=== PATIENT | female | born 1985 | race Caucasian/White ===

== ENCOUNTER 2024-10-03 16:59 | Emergency (ER) | payer OTHER, SELFPAY ==
[2024-10-03 17:02] VITALS: BP 112/90; PULSE 78; TEMP 36.6; O2SAT 98; BMI 26.3
--- NOTE | 2024-10-03 17:13 | XR_ITS ---
The [address] [address] Patient Name: SHAKIRA RODRIGUEZ MRN: [id number] date: 1985 Sex: F Assigned Patient Location: ER Current Patient Location: Accession/Order Number: [id number] Exam Date: 10/03/2024 17:50 Report Date: 10/03/2024 20:31 At the request of: SHIRLEY BLISS Procedure: XR elbow RT min 3V HISTORY: injury COMPARISON: There are no previous studies available for comparison. TECHNIQUE: 3 views of the right elbow. FINDINGS: BONE DENSITY: Normal. JOINTS: No acute abnormality. FRACTURE: No acute fracture. DISLOCATION: None. SOFT TISSUES: There is small soft tissue gas in the proximal forearm. XR/XR elbow RT min 3V IMPRESSION: 1. No acute osseous or joint abnormality. 2. Laceration of the proximal forearm. Electronically authenticated by: FARHAT FRANCIS Date: 10/03/2024 20:31
--- NOTE | 2024-10-03 17:14 | ED_ITS ---
HPI - Animal Bite General Chief Complaint: Animal Bite Stated Complaint: DOG BITE Time Seen by Provider: 10/03/24 17:13 Source: patient Mode of arrival: walk-in Limitations: no limitations History of Present Illness HPI narrative: 39 year old female presents to the ED for right arm swelling, erythema, increased warmth. She was evaluated at another facility 09/30/24 for a dog bite to her right forearm. States x-rays of the forearm were unremarkable. She had sutures placed in two of her wounds. She has been taking Augmentin. She is concerned due to the increased warmth and swelling to the elbow area. Denies fev er, chills, weakness, N/T. Related Data Home Medications ?Medication ?Instructions ?Recorded ?Confirmed amoxicillin 875 mg-potassium tab 10/03/24 clavulanate 125 mg tablet hydrocodone 5 mg-acetaminophen 325 tab 10/03/24 mg tablet Allergies Allergy/AdvReac Type Severity Reaction Status Date / Time No Known Drug Allergies Allergy Verified 10/03/24 17:11 Review of Systems ROS Constitutional Denies: fever or chills Ears, nose, mouth, and throat Denies: neck pain Cardiovascular Denies: chest pain Respiratory Denies: shortness of breath Musculoskeletal Reports: extremity pain and extremity swelling; Denies: neck pain Integumentary/Breast Reports: redness, skin pain and skin tenderness; Denies: rash Neurological Denies: headache, numbness in extremities, weakness in extremities or dizziness PFSH PFSH Social History Little interest or pleasure in doing things: not at all Feeling down, depressed, or hopeless: not at all Exam Constitutional Vital Signs, click to edit/add: Last Vital Signs Temp 97.8 F 10/03/24 17:02 Pulse 78 10/03/24 17:02 Resp 18 10/03/24 17:02 BP 112/90 10/03/24 17:02 Pulse Ox 98 10/03/24 17:02 O2 Del Method Room Air 10/03/24 17:02 Common normals: no apparent distress and oriented x3 General appearance: cooperative Eye Common normals: conjunctivae normal and no scleral icterus Neck & C-Spine Common normals: supple Chest Chest: symmetrical chest wall rise Respiratory Common normals: normal respiratory effort Effort & inspection: able to speak in complete sentences Cardio Common normals: regular rate Peripheral pulses: radial pulses present Extremity Other: Swelling to right arm from elbow to hand. There are wounds to right forearm with sutures in place. There is erythema with increased warmth to right forearm and right posterior elbow area. No drainage from wounds. No foul odor. Distal sensation intact. Abrasions to left forearm as well. Neuro Common normals: oriented x3 and moves all extremities Sensorium/orientation: awake and alert Speech: speech normal Course Vital Signs Vital signs: Vital Signs Temperature 97.8 F 10/03/24 17:02 Pulse Rate 78 10/03/24 17:02 Respiratory Rate 18 10/03/24 17:02 Blood Pressure 112/90 10/03/24 17:02 Pulse Oximetry 98 10/03/24 17:02 Oxygen Delivery Method Room Air 10/03/24 17:02 Temperature 97.8 F 10/03/24 17:02 Pulse Rate 78 10/03/24 17:02 Respiratory Rate 18 10/03/24 17:02 Blood Pressure 112/90 10/03/24 17:02 Pulse Oximetry 98 10/03/24 17:02 Oxygen Delivery Method Room Air 10/03/24 17:02 MDM - Animal Bite MDM Narrative Medical decision making narrative: WBC count was 5.1. X-ray was negative for acute findings. She was medicated with Unasyn IV here in the ED. Continue the Augmentin as directed. A sling was leelee lied to the right arm. The application was checked and was appropriate; RUE remained NVI. Follow up with pcp for a recheck, further evaluation and treatment. Return precautions were discussed. Differential Diagnosis Differential diagnosis: Likely dog bite Medical Records Attestation: I reviewed the patient's medical records. Lab Data Attestation: I reviewed the patient's lab results. Labs: Lab Results 10/03/24 Range/Units 17:30 WBC 5.1 (4.0-11.0) 10^3/uL RBC 4.28 (4.20-5.40) 10^6/uL Hgb 13.4 (12.0-16.0) g/dL Hct 39.8 (36.0-48.0) % MCV 93.0 (81.0-99.0) fL MCH 31.3 (26.7-34.0) pg MCHC 33.7 (29.9-35.2) g/dL RDW 12.0 (11.0-15.0) % Plt Count 262 (150-450) 10^3/uL MPV 11.3 (9.5-13.5) fL Neut % (Auto) 57.9 (43.0-75.0) % Lymph % (Auto) 34.4 (20.5-60.0) % [place] % (Auto) 6.1 (1.7-12.0) % Eos % (Auto) 0.8 L (0.9-7.0) % Baso % (Auto) 0.6 (0.2-2.0) % Neut # (Auto) 3.0 (1.4-6.5) 10^3/uL Lymph # (Auto) 1.8 (1.2-3.8) 10^3/uL [place] # (Auto) 0.3 (0.3-0.8) 10^3/uL Eos # (Auto) 0.0 (0.0-0.7) 10^3/uL Baso # (Auto) 0.0 (0.0-0.1) 10^3/uL Abs Immat Gran (auto) 0.01 (0.00-0.03) 10^3/uL Imm/Tot Granulo (auto) 0.2 (0.0-0.5) % Sodium 137 (136-145) mmol/L Potassium 3.7 (3.5-5.1) mmol/L Chloride 105 (98-107) mmol/L Carbon Dioxide 24.3 (21.0-32.0) mmol/L Anion Gap 11.4 BUN 11.0 (7.0-18.0) mg/dL Creatinine 0.76 (0.55-1.02) mg/dL Est GFR ( Amer) >60 (>=60 mL/min/1.73m^2) Est GFR (Non-Af Amer) >60 (>=60 mL/min/1.73m^2) BUN/Creatinine Ratio 14.5 Glucose 117 H (74-106) mg/dL Calcium 11.0 H (8.5-10.1) mg/dL Imaging Data XR: Attestation: I have reviewed the pertinent imaging results. Radiologist's impression: ITS Impressions Elbow X-Ray 10/03/24 17:13 IMPRESSION: 1. No acute osseous or joint abnormality. 2. Laceration of the proximal forearm. Electronically authenticated by: FARHAT FRANCIS Date: 10/03/2024 20:31 Discharge Plan Discharge Chief Complaint: Animal Bite Clinical Impression: Dog bite, Cellulitis Patient Disposition: Home, Self-Care Time of Disposition Decision: 18:15 Condition: Good Mode of Transportation: Private Vehicle Prescriptions / Home Meds: No Action hydrocodone-acetaminophen 5-325 mg tablet amoxicillin-pot clavulanate 875-125 mg tablet Print Language: Panamanian Instructions: Animal Bite (ED), Cellulitis (ED) Additional Instructions: Return to the ER for new or worsening symptoms. Continue the Augmentin as directed to completion. Referrals: Sandee Carr NP [Primary Care Provider] - 1 week Discharge Date/Time: 10/03/24 19:41
[2024-10-03 17:36] LABS: Basophils Percent Auto 0.6 % (0.2-2.0); Eosinophils Percent Auto 0.8 % (0.9-7.0); Hematocrit 39.8 % (36.0-48.0); Hemoglobin 13.4 g/dL (12.0-16.0); Immature Granulocytes Abs Auto 0.01 10^3/uL (0.00-0.03); Immature Granulocytes Pct Auto 0.2 % (0.0-0.5); Lymphocytes Absolute Auto 1.8 10^3/uL (1.2-3.8); Lymphocytes Percent Auto 34.4 % (20.5-60.0); Mean Corpuscular HGB Conc 33.7 g/dL (29.9-35.2); Mean Corpuscular Hemoglobin 31.3 pg (26.7-34.0); Mean Platelet Volume 11.3 fL (9.5-13.5); Monocytes Absolute Auto 0.3 10^3/uL (0.3-0.8); Monocytes Percent Auto 6.1 % (1.7-12.0); Neutrophils Percent Auto 57.9 % (43.0-75.0); Platelet Count 262 10^3/uL (150-450); Red Blood Count 4.28 10^6/uL (4.20-5.40); White Blood Count 5.1 10^3/uL (4.0-11.0)
[2024-10-03 17:44] LABS: Anion Gap 11.4; BUN Creatinine Ratio 14.5; Carbon Dioxide 24.3 mmol/L (21.0-32.0); Chloride 105 mmol/L (98-107); Estimated GFR (African America >60 (>=60 mL/min/1.73m^2); Estimated GFR (Non-African Ame >60 (>=60 mL/min/1.73m^2); Glucose 117 mg/dL (74-106); Potassium 3.7 mmol/L (3.5-5.1); Sodium 137 mmol/L (136-145)
[2024-10-03] MEDS: AMPICILLIN SODIUM/SULBACTAM NA 3 GM in 0.9 % SODIUM CHLORIDE 100 ML IV (18:46)
== END 2024-10-03 19:41 | disposition home or self-care (01) ==
PROVIDERS: Nurse Practitioner Family; Emergency Provider Emergency Medicine; PCP Nurse Practitioner Family
DX: L03.113 Cellulitis of right upper limb (principal); S51.811A Laceration without foreign body of right forearm, initial encounter; W54.0XXA Bitten by dog, initial encounter
CPT/HCPCS: 36415; 73080; 80048; 85025; 96365; 99285; J0295

== ENCOUNTER 2024-10-04 22:17 | Observation (INO) | payer OTHER, SELFPAY ==
[2024-10-04 22:32] VITALS: BP 138/80; PULSE 76; TEMP 37.1; O2SAT 98; BMI 26.3
[2024-10-05] VITALS (13 sets, daily range): BP systolic 119–186; BP diastolic 77–90; PULSE 55–93; TEMP 36.3–36.9; O2SAT 95–100; BMI 26.8
--- NOTE | 2024-10-05 00:04 | PC.NURSE ---
patient complains of swelling to her right elbow, patient sustain dog bite on 09/30/2024. puncture wound have sutures but no visible drainage or active bleeding at this time
--- NOTE | 2024-10-05 00:17 | ED_ITS ---
HPI HPI - General Adult General Chief complaint: Extremity Injury, Upper Stated complaint: UE PAIN Time Seen by Provider: 10/05/24 00:11 Source: patient Mode of arrival: walk-in Limitations: no limitations History of Present Illness HPI narrative: dog bite left hip, left forearm and right forearm 09/30/24. Seen at [facility] and lac right forearm repaired and discharged home on Augmentin. Seen here yesterday because of increased swelling of the right arm. No complaints involving her left hip or left FA and feel they are improving. Given dose of IV Unasyn yesterday and felt this AM it did help as the swelling had decreased some. During the day the arm is again more swollen and she feels the Augmentin is not working . Has pain. No fever. Related Data Home Medications ?Medication ?Instructions ?Recorded ?Confirmed amoxicillin 875 mg-potassium tab 10/03/24 clavulanate 125 mg tablet hydrocodone 5 mg-acetaminophen 325 1 tab 10/03/24 mg tablet Allergies Allergy/AdvReac Type Severity Reaction Status Date / Time No Known Drug Allergies Allergy Verified 10/04/24 22:35 Opioid HPI Opioid Management Most Recent Opioid Data: No Data to Display Review of Systems ROS Status of ROS 10 or more systems reviewed and unremark able except as noted in history and below PFSH PFSH Social History Little interest or pleasure in doing things: not at all Feeling down, depressed, or hopeless: not at all Exam Constitutional Vital Signs, click to edit/add: Last Vital Signs Temp 98.7 F 10/04/24 22:32 Pulse 93 H 10/05/24 00:11 Resp 18 10/05/24 00:11 BP 186/90 H 10/05/24 00:11 Pulse Ox 99 10/05/24 00:11 O2 Del Method Room Air 10/04/24 22:32 Common normals: no apparent distress, average body habitus, oriented x3, no limitations, healthy appearing, alert and well nourished [facility] Common normals: normocephalic Eye Common normals: PERRL, EOMs intact bilaterally and conjunctivae normal Respiratory Common normals: normal respiratory effort, no retractions, no use of accessory muscles and clear to auscultation bilaterally Cardio Common normals: regular rate, regular rhythm, S1 normal heart sound and S2 normal heart sound Extremity Other: lac right FA with stitches in places. No drainage. Does have significant swelling of the left hand/FA and elbow. Elbow is flexed at 90 degrees as she is not able to extend it Neuro Common normals: oriented x3, CN's II-XII intact bilaterally, moves all extremities, no focal motor deficits and no sensory deficits noted Psych Appearance: grossly normal Course Vital Signs Vital signs: Vital Signs Temperature 98.7 F 10/04/24 22:32 Pulse Rate 76 10/04/24 22:32 Respiratory Rate 16 10/04/24 22:32 Blood Pressure 138/80 10/04/24 22:32 Pulse Oximetry 98 10/04/24 22:32 Oxygen Delivery Method Room Air 10/04/24 22:32 Temperature 98.7 F 10/04/24 22:32 Pulse Rate 93 H 10/05/24 00:11 Respiratory Rate 18 10/05/24 00:11 Blood Pressure 186/90 H 10/05/24 00:11 Pulse Oximetry 99 10/05/24 00:11 Oxygen Delivery Method Room Air 10/04/24 22:32 Medical Decision Making [facility] Narrative Medical decision making narrative: patient presents after failing out patient Antibiotics for dog bite 5 days ago. Despite taking Augmentin her arm is not improving. Did receive a dose of Unasyn yesterday while in the ED here and she felt it did help but now despite continui ng Augmentin the arm is swelling again Labs ordered including CRP. IV unasyn ordered. Discussed with hospitalist and will plan obs admission for cellulitis right arm Discharge Plan Discharge Chief Complaint: Extremity Injury, Upper Clinical Impression: Cellulitis, Dog bite Patient Disposition: Admitted as Observation Prescriptions / Home Meds: No Action hydrocodone-acetaminophen 5-325 mg tablet 1 tab amoxicillin-pot clavulanate 875-125 mg tablet Print Language: [place] Referrals: Sandee Carr NP [Primary Care Provider] - 1 week
[2024-10-05 00:41] LABS: Basophils Percent Auto 0.7 % (0.2-2.0); Eosinophils Absolute Auto 0.1 10^3/uL (0.0-0.7); Eosinophils Percent Auto 1.6 % (0.9-7.0); Hematocrit 39.3 % (36.0-48.0); Hemoglobin 12.9 g/dL (12.0-16.0); Immature Granulocytes Abs Auto 0.01 10^3/uL (0.00-0.03); Immature Granulocytes Pct Auto 0.2 % (0.0-0.5); Lymphocytes Absolute Auto 1.8 10^3/uL (1.2-3.8); Lymphocytes Percent Auto 40.7 % (20.5-60.0); Mean Corpuscular HGB Conc 32.8 g/dL (29.9-35.2); Mean Corpuscular Volume 94.5 fL (81.0-99.0); Mean Platelet Volume 11.4 fL (9.5-13.5); Monocytes Absolute Auto 0.3 10^3/uL (0.3-0.8); Monocytes Percent Auto 6.1 % (1.7-12.0); Neutrophils Absolute Auto 2.3 10^3/uL (1.4-6.5); Neutrophils Percent Auto 50.7 % (43.0-75.0); Platelet Count 269 10^3/uL (150-450); Red Blood Count 4.16 10^6/uL (4.20-5.40); Red Cell Distribution Width 11.9 % (11.0-15.0); White Blood Count 4.5 10^3/uL (4.0-11.0)
[2024-10-05] MEDS: AMPICILLIN SODIUM/SULBACTAM NA 3 GM in 0.9 % SODIUM CHLORIDE 100 ML IV ×3 (00:46→14:16)
[2024-10-05 00:56] LABS: Anion Gap 13.1; Calcium 11.1 mg/dL (8.5-10.1); Carbon Dioxide 27.7 mmol/L (21.0-32.0); Chloride 105 mmol/L (98-107); Estimated GFR (African America >60 (>=60 mL/min/1.73m^2); Estimated GFR (Non-African Ame >60 (>=60 mL/min/1.73m^2); Glucose 92 mg/dL (74-106); Potassium 3.8 mmol/L (3.5-5.1); Sodium 142 mmol/L (136-145)
[2024-10-05 01:02] LABS: Lactate/Lactic Acid 1.7 mmol/L (0.4-2.0)
[2024-10-05 01:08] LABS: C Reactive Protein <0.50 mg/dL (<=0.50)
--- NOTE | 2024-10-05 01:32 | PC.NURSE ---
patient voices no complaints or concerns and patient complete with her IV ATB and iv site no signs of infiltration or pain
[2024-10-05 06:29] LABS: Basophils Percent Auto 0.8 % (0.2-2.0); Eosinophils Absolute Auto 0.1 10^3/uL (0.0-0.7); Hematocrit 38.4 % (36.0-48.0); Hemoglobin 12.8 g/dL (12.0-16.0); Lymphocytes Absolute Auto 1.8 10^3/uL (1.2-3.8); Lymphocytes Percent Auto 44.1 % (20.5-60.0); Mean Corpuscular HGB Conc 33.3 g/dL (29.9-35.2); Mean Corpuscular Hemoglobin 31.4 pg (26.7-34.0); Mean Corpuscular Volume 94.1 fL (81.0-99.0); Mean Platelet Volume 11.8 fL (9.5-13.5); Monocytes Absolute Auto 0.3 10^3/uL (0.3-0.8); Monocytes Percent Auto 6.8 % (1.7-12.0); Neutrophils Absolute Auto 1.9 10^3/uL (1.4-6.5); Neutrophils Percent Auto 46.3 % (43.0-75.0); Platelet Count 252 10^3/uL (150-450); Red Blood Count 4.08 10^6/uL (4.20-5.40)
[2024-10-05 06:43] LABS: Alanine Aminotransferase 26 U/L (14-59); Albumin Globulin Ratio 1.1; Albumin Level 3.3 g/dL (3.4-5.0); Alkaline Phosphatase 90 U/L (46-116); Anion Gap 13.2; Aspartate Amino Transferase 18 U/L (15-37); BUN Creatinine Ratio 14.1; Bilirubin Total 0.3 mg/dL (0.2-1.0); Calcium 10.1 mg/dL (8.5-10.1); Carbon Dioxide 25.1 mmol/L (21.0-32.0); Chloride 107 mmol/L (98-107); Estimated GFR (African America >60 (>=60 mL/min/1.73m^2); Estimated GFR (Non-African Ame >60 (>=60 mL/min/1.73m^2); Globulin 2.9 g/dL; Glucose 93 mg/dL (74-106); Magnesium 2.1 mg/dL (1.8-2.4); Potassium 4.3 mmol/L (3.5-5.1); Sodium 141 mmol/L (136-145); Total Protein 6.2 g/dL (6.4-8.2)
[2024-10-05] MEDS: ENOXAPARIN SODIUM 40 MG/0.4 ML SYRINGE SUBQ (08:14)
[2024-10-05] MEDS: 0.9 % SODIUM CHLORIDE 250 ML 10 ML IV (08:14)
[2024-10-05] MEDS: OXYCODONE HCL/ACETAMINOPHEN 5MG/325MG 2 TAB PO (08:53)
--- NOTE | 2024-10-05 09:05 | PM.HP ---
HPI H&P: HPI History of Present Illness Chief complaint: UE PAIN Narrative: patient is a 39 y.o white female with past medical history of getting bit by her boyfriends dog, she sufferred several bites over the right and left arm and left hip. This was a bull/pit mix. The dog is now an outside dog and they have found another home for it. She presented at another ER and had to have sutures placed for the right forearm laceration/bite. She was placed on Augmentin. She returned to the ER last night with warmth, swelling and pain to that right forearm. She denies fevers or chills but pain when moving it. She has no other past medical history, other than recent hyperparathyroidism. ER findings: WBC's 5.1, afebrile but given the nature and extent of the bite and clinical signs of cellulitis, patient was placed on Unasyn. this morning on exam, she has increased pain and swelling extending into right hand, no discharge or drainage. Opioid HPI Opioid Management Most Recent Pain and Opioid Data: Last Pain Scale 4 10/05/24 15:00 10/05/24 Last Pain Assessment 10/05/24 15:00 Last MAR Pain Assessment 10/05/24 08:53 Last ORT Total Score 1 10/05/24 01:38 10/05/24 Last ORT Risk Category Low Risk 10/05/24 01:38 10/05/24 Review of Systems ROS Narrative ROS: a complete review of systems were reviewed with patient and are positive as below or listed in History of Chief Complaint. General: no fever, chills, night sweats Head: no headache, trauma, visual changes, nausea or vomiting Skin: multiple dog bites Eyes: no blurriness of vision Ears: no reported hearing loss, vertigo, earache, or tinnitus Throat: no sore throat, hoarseness, swelling of neck, or tongue pain Heart: no chest pain Lungs: no shortness of breath or cough GI: no diarrhea or vomiting/nausea Urinary: no urinary urgency, frequency or pain Neuro: no numbness or tingling HEM: no bleeding issues or bruising ENDO: no thyroid problems Psych: no anxiety or depression PFSH PFS Medical History (Updated 10/05/24 @ 15:29 by Kenisha Kaplan, DO) Hyperparathyroidism ?E21.3 - Hyperparathyroidism, unspecified (ICD-10) Social History Within the past year, how often did you have a drink containing alcohol: monthly or less Within the past year, how often did you have six or more drinks on one occasion: never Smoking status: Never smoker Non-prescribed substance use: denies use Known occupational exposures/hazards: No Highest level of school completed/degree received: high school graduate Do you want help with school or training: No Are you now , , , , never or living with a partner: living with partner In a typical week, how many times do you talk on the telephone with family, friends, or neighbors: 3 or more times per week How often do you get together with friends or relatives: twice per week How often do you attend sikh or congregation services: never Do you belong to any clubs or organizations such as sikh groups unions, [employer] or athletic groups, or school groups: no Total score: 2 Score interpretation: A score of greater than or equal to 2 indicates the lowest level of social isolation. Little interest or pleasure in doing things: not at all Feeling down, depressed, or hopeless: not at all Feel stressed/tense/nervous/anxious/difficulty sleeping: not at all Due to disability, difficulty making decisions: No Meds Home Medications and Allergies Home Medications ?Medication ?Instructions ?Recorded ?Confirmed ?Type amoxicillin 875 mg-potassium tab 10/03/24 History clavulanate 125 mg tablet hydrocodone 5 mg-acetaminophen 325 1 tab 10/03/24 History mg tablet Allergies Allergy/AdvReac Type Severity Reaction Status Date / Time No Known Drug Allergies Allergy Verified 10/04/24 22:35 Exam Narrative Exam Narrative: General: Patient is alert, and oriented to person, place and time with normal affect, proper hygiene Skin: right forearm laceration is healing well, i cannot appreciate any discharge or feel any area of loculations, her arm is swollen from below the elbow to the top of hand, erythematous and; healing bite ramirez on left arm and large bruise to left hip. Head: atraumatic, acephalic Eyes: PERRLA, no nystagmus present, conjunctiva clear, no scleral icterus Ears: normal gross auditory acuity Heart: Normal rate and rhythm, no murmurs/rubs/gallops Lungs: no audible wheezes, crackles and normal breath sounds all lung che Musculoskeletal: muscle atrophy noted, ROM is limited due to being in hospital bed, no swelling bilateral lower extremities Vascular: Normal carotid, radial, femoral, posterior tibial, and dorsalis pedis pulses Lymph: no supraclavicular, axillary, or anterior/posterior cervical adenopathy Neuro: CN II-X grossly intact, normal sensation upper and lower extremities Constitutional Vital Signs, click to edit/add: Last Vital Signs Temp 97.4 F L 10/05/24 07:48 Pulse 79 10/05/24 07:52 Resp 20 10/05/24 07:52 BP 123/86 10/05/24 07:48 Pulse Ox 96 10/05/24 07:48 O2 Del Method Room Air 10/05/24 07:48 Results Labs Labs: Short CBC 10/05/24 10/05/24 Range/Units 00:29 05:56 WBC 4.5 4.0 (4.0-11.0) 10^3/uL Hgb 12.9 12.8 (12.0-16.0) g/dL Hct 39.3 38.4 (36.0-48.0) % Plt Count 269 252 (150-450) 10^3/uL BMP 10/05/24 10/05/24 00:29 05:56 Sodium 142 141 Potassium 3.8 4.3 Chloride 105 107 Carbon Dioxide 27.7 25.1 BUN 13.0 9.0 Creatinine 0.93 0.64 Glucose 92 93 Calcium 11.1 H 10.1 Liver Function 10/05/24 Range/Units 05:56 Total Bilirubin 0.3 (0.2-1.0) mg/dL AST 18 (15-37) U/L ALT 26 (14-59) U/L Alkaline Phosphatase 90 (46-116) U/L Albumin 3.3 L (3.4-5.0) g/dL Assessment and Plan Assessment and Plan (1) Cellulitis: Qualifiers: Site of cellulitis: extremity Site of cellulitis of extremity: upper extremity Laterality: right Qualified Code(s): L03.113 - Cellulitis of right upper limb (2) Dog bite: Qualifiers: Encounter type: initial encounter Qualified Code(s): W54.0XXA - Bitten by dog, initial encounter (3) Hyperparathyroidism: Plan was on unasyn, stop this and place on zosyn and Vancomycin. Monitor cbc, cmp. Pain control as needed. Lovenox for DVT prophylaxis patient is a full code patient is in observation status.
--- NOTE | 2024-10-05 12:52 | CM.NOTE ---
Rounds made with Dr. Kaplan, no discharge today pt will need IV antibiotics.
[2024-10-05] MEDS: VANCOMYCIN HCL 1,000 MG in 0.9 % SODIUM CHLORIDE 250 ML 125 MG IV (16:23)
[2024-10-05] MEDS: OXYCODONE HCL/ACETAMINOPHEN 5MG/325MG 1 TAB PO (16:23)
[2024-10-05] MEDS: PIPERACILLIN SODIUM/TAZOBACTAM 3.375 GM in 0.9 % SODIUM CHLORIDE 50 ML IV (20:40)
[2024-10-06] MEDS: VANCOMYCIN HCL 1,000 MG in 0.9 % SODIUM CHLORIDE 250 ML 250 MG IV ×2 (00:57→09:44)
[2024-10-06] MEDS: PIPERACILLIN SODIUM/TAZOBACTAM 3.375 GM in 0.9 % SODIUM CHLORIDE 50 ML IV ×2 (03:53→11:51)
[2024-10-06 04:09] VITALS: BP 110/73; PULSE 69; TEMP 36.8; O2SAT 95
[2024-10-06 06:10] LABS: Basophils Absolute Auto 0.1 10^3/uL (0.0-0.1); Eosinophils Absolute Auto 0.1 10^3/uL (0.0-0.7); Eosinophils Percent Auto 1.8 % (0.9-7.0); Hematocrit 42.9 % (36.0-48.0); Hemoglobin 14.3 g/dL (12.0-16.0); Immature Granulocytes Abs Auto 0.01 10^3/uL (0.00-0.03); Immature Granulocytes Pct Auto 0.2 % (0.0-0.5); Lymphocytes Absolute Auto 1.9 10^3/uL (1.2-3.8); Lymphocytes Percent Auto 36.7 % (20.5-60.0); Mean Corpuscular HGB Conc 33.3 g/dL (29.9-35.2); Mean Corpuscular Hemoglobin 31.2 pg (26.7-34.0); Mean Corpuscular Volume 93.7 fL (81.0-99.0); Mean Platelet Volume 11.4 fL (9.5-13.5); Monocytes Absolute Auto 0.3 10^3/uL (0.3-0.8); Monocytes Percent Auto 6.3 % (1.7-12.0); Neutrophils Absolute Auto 2.8 10^3/uL (1.4-6.5); Platelet Count 289 10^3/uL (150-450); Red Blood Count 4.58 10^6/uL (4.20-5.40); Red Cell Distribution Width 11.9 % (11.0-15.0); White Blood Count 5.1 10^3/uL (4.0-11.0)
[2024-10-06 06:31] LABS: Alanine Aminotransferase 24 U/L (14-59); Albumin Globulin Ratio 1.2; Albumin Level 3.7 g/dL (3.4-5.0); Alkaline Phosphatase 97 U/L (46-116); Aspartate Amino Transferase 17 U/L (15-37); Bilirubin Total 0.4 mg/dL (0.2-1.0); Calcium 10.5 mg/dL (8.5-10.1); Carbon Dioxide 25.2 mmol/L (21.0-32.0); Chloride 107 mmol/L (98-107); Estimated GFR (African America >60 (>=60 mL/min/1.73m^2); Estimated GFR (Non-African Ame >60 (>=60 mL/min/1.73m^2); Globulin 3.1 g/dL; Glucose 92 mg/dL (74-106); Potassium 4.2 mmol/L (3.5-5.1); Sodium 141 mmol/L (136-145); Total Protein 6.8 g/dL (6.4-8.2)
[2024-10-06 08:00] VITALS: BP 108/72; PULSE 65; PULSE 75; TEMP 36.3; O2SAT 95
[2024-10-06 08:07] VITALS: O2SAT 97
--- NOTE | 2024-10-06 08:57 | PM.DS1 ---
DS: Providers Provider Date of admission: 10/05/24 01:16 Primary care physician: Sandee Crar NP Attending physician on admission: Kenisha Kaplan Consults: 10/06/24 Consult to Manager Technical Routine Reason for consult:: Mental Health Other Other reason:: Follow up regarding Dog bite and reporting for possible rabies vaccine Discharging clinician: Kenisha Kaplan DS: Diagnosis Discharge Diagnosis (1) Cellulitis: Qualifiers: Laterality: right Site of cellulitis: extremity Site of cellulitis of extremity: upper extremity Qualified Code(s): L03.113 - Cellulitis of right upper limb (2) Dog bite: Qualifiers: Encounter type: initial encounter Qualified Code(s): W54.0XXA - Bitten by dog, initial encounter (3) Hyperparathyroidism: DS: Summary Hospital Course Hospital Course: patient is a 39 y.o white female with past medical history of getting bit by her boyfriends dog, she suffered several bites over the right and left arm and left hip. This was a bull/pit mix. The dog is now an outside dog and they have found another home for it. She presented at another ER and had to have sutures placed for the right forearm laceration/bite. She was placed on Augmentin. She returned to the ER with warmth, swelling and pain to that right forearm. She denies fevers or chills but pain when moving it. She has no other past medical history, other than recent hyperparathyroidism. ER findings: WBC's 5.1, afebrile but given the nature and extent of the bite and clinical signs of cellulitis, patient was placed on Unasyn, this was stopped and I placed her on Vancomycin and Zosyn. Her pain has improved and erythema and swelling have improved. She has not discharge or drainage from sutures. She has had her Tetanus shot. I will place her on Clindamycin and Cefuroxime also with Percocet for pain. She will follow up with her PCP next week for suture removal. She may return to the ER with any worsening signs or symptoms. She has remained afebrile and WBC's normal. Status at Discharge Functional status at discharge: independent ambulation Overall status at discharge: patient is progressing back to baseline Time Spent with Patient Time attestation: Total time spent providing and/or coordinating discharge services: Time spent: greater than 30 minutes Exam Narrative Exam Narrative: General: Patient is alert, and oriented to person, place and time with normal affect, proper hygiene Skin: right forearm laceration is healing well, i cannot appreciate any discharge or feel any area of loculations, swelling has improved, erythema improved Head: atraumatic, acephalic Eyes: PERRLA, no nystagmus present, conjunctiva clear, no scleral icterus Ears: normal gross auditory acuity Heart: Normal rate and rhythm, no murmurs/rubs/gallops Lungs: no audible wheezes, crackles and normal breath sounds all lung che Musculoskeletal: muscle atrophy noted, ROM is limited due to being in hospital bed, no swelling bilateral lower extremities Neuro: CN II-X grossly intact, normal sensation upper and lower extremities Constitutional Vital Signs, click to edit/add: Last Vital Signs Temp 97.4 F L 10/06/24 08:00 Pulse 75 10/06/24 08:00 Resp 13 10/06/24 08:00 BP 108/72 10/06/24 08:00 Pulse Ox 95 10/06/24 08:00 O2 Del Method Room Air 10/06/24 08:00 DS: Data Data Completed and Pending Labs on day of discharge: Labs from last 24 hours 10/06/24 05:36 WBC 5.1 RBC 4.58 Hgb 14.3 Hct 42.9 MCV 93.7 MCH 31.2 MCHC 33.3 RDW 11.9 Plt Count 289 MPV 11.4 Neut % (Auto) 54.0 Lymph % (Auto) 36.7 [place] % (Auto) 6.3 Eos % (Auto) 1.8 Baso % (Auto) 1.0 Neut # (Auto) 2.8 Lymph # (Auto) 1.9 [place] # (Auto) 0.3 Eos # (Auto) 0.1 Baso # (Auto) 0.1 Abs Immat Gran (auto) 0.01 Imm/Tot Granulo (auto) 0.2 Sodium 141 Potassium 4.2 Chloride 107 Carbon Dioxide 25.2 Anion Gap 13.0 BUN 7.0 Creatinine 0.78 Est GFR ( Amer) >60 Est GFR (Non-Af Amer) >60 BUN/Creatinine Ratio 9.0 Glucose 92 Calcium 10.5 H Total Bilirubin 0.4 AST 17 ALT 24 Alkaline Phosphatase 97 Total Protein 6.8 Albumin 3.7 Globulin 3.1 Albumin/Globulin Ratio 1.2 Discharge Plan Discharge Disposition: Home, Self-Care Discharge Medications: New oxycodone-acetaminophen 5-325 mg Tablet 1 tab PO Q8H PRN (Reason: Pain Scale 4-6) 2 Days Qty: 6 0RF clindamycin HCl 300 mg capsule 300 mg PO Q8H 7 Days Qty: 21 0RF cefuroxime axetil 500 mg tablet 500 mg PO BID 7 Days Qty: 14 0RF Discontinued hydrocodone-acetaminophen 5-325 mg tablet 1 tab amoxicillin-pot clavulanate 875-125 mg tablet Activity: increase activity as tolerated Diet: advance to your usual diet Print Language: Setswana Forms: Portal Instructions Follow Up Appointments: Follow up with Sandee Carr NP on Thursday10/11/24 at 8:45 am at [facility] located at [address] [place] [address], phone number [phone]
[2024-10-06 09:44] VITALS: TEMP 36.3
[2024-10-06] MEDS: ENOXAPARIN SODIUM 40 MG/0.4 ML SYRINGE SUBQ (09:45)
--- NOTE | 2024-10-06 11:19 | SWNOTE1 ---
SW had consult to follow up with rabies vaccine. At this time this is not going to be pursued, pt did not have an initial vaccine at [facility].
--- NOTE | 2024-10-06 11:35 | CM.NOTE ---
Rounds made with Dr. Kaplan, pt will discharge to home today. Pt will discharge on P.O antibiotics and f/u with PCP. Dr. Kaplan discussed Rabies vaccine with pt, pt's boyfriend has had the dog for 1 year with low concern. Pt did receive Tetanus vaccine initially at [facility]. No order per Dr. Kaplan for Rabies vaccine at this time.
[2024-10-06] MEDS: OXYCODONE HCL/ACETAMINOPHEN 5MG/325MG 1 TAB PO (11:42)
[2024-10-06 12:00] VITALS: BP 122/77; PULSE 77; TEMP 36.4; O2SAT 97
--- NOTE | 2024-10-07 13:01 | CM.DCFOLLOWU ---
Person spoke with:patient How are you feeling?well How is your pain? minimal and swelling has gone down Did you understand your discharge instructions?yes Do you have any questions about your discharge instructions? no Were you given any prescriptions at discharge?yes Were you able to get your prescriptions filled? yes Do you understand how to take your medications as ordered? we reviewed medications as she was not aware one medication was 3x daily Do you have any questions about your follow up appointment and do you plan to keep your follow up appointment? no questions, follow up reviewed Is there anything else that you would like to discuss?no Questions/Comments/Concerns/Other:none
== END 2024-10-06 12:59 | disposition home or self-care (01) ==
LOC: ER 10-05 00:24 → MS 10-05 01:17
PROVIDERS: Admitting Provider Family Medicine; Emergency Provider Internal Medicine; PCP Nurse Practitioner Family; Visit Provider Family Medicine
DX: L03.113 Cellulitis of right upper limb (principal); S51.851D Open bite of right forearm, subsequent encounter; W54.0XXD Bitten by dog, subsequent encounter; E21.3 Hyperparathyroidism, unspecified
CPT/HCPCS: 36415; 80048; 80053; 83605; 83735; 85025; 86140; 94761; 96365; 96366; 96367; 96368; 96372; 99285; G0378; J0295; J1650; J2543; J3370

== ENCOUNTER 2024-12-21 20:47 | Emergency (ER) | payer OTHER, SELFPAY ==
--- OUTSIDE RECORDS SUMMARY | 2024-12-21 20:57 | XMS_ITS | CCD ---
Author Organization [facility] Inform ion [facility] Care Team Providers Care Pit Shoveler Name Role Phone GELY DURON Admitting Unavailable GELY DURON Attending Unavailable MISC, DOCTOR Primary Care Unavailable GELY DURON Consulting Unavailable SAL QUINTEROS Consulting Unavailable SHREYA ENGLE Consulting Unavailable [facility], Services Primary Care Provider [phone] MD Emma Moody Referring Provider DO Hemal Moore Attending Provider [facility] Primary Care Provider ARLINE Andujar Emergency Provider [facility] Primary Care Provider Ezequiel [facility] Na Wilson Emergency Provider [phone] DO Odin García Attending Provider KHALIDA Carr Attending Provider [facility] Services Primary Care Provider [phone] KHALIDA Carr Primary Care Provider GONZALO SAWYER Attending Unavailable Unallocated Chana RIGGSs Provider Primary Care Provi kristina Sandee Carr APRN Primary Care Provider [phone] Sandee Carr APRN Attending Provider Joo Andujar PA-C Emergency Provider [phone] Aldo Rock DO Emergency Provider Sandee Carr Admitting Unavailable Sandee Carr Attending Unavailable [facility], Services Primary Care Unavaila ble Sandee Carr Admitting Unavailable Sandee Carr Attending Unavailable Sandee Carr Primary Care Unavailable Aldo Rock Admitting Unavailable Aldo Rock Attending Unavailable Sandee Carr Primary Care Unavailable Joo Andujar Admitting Unavailable Joo Andujar Attending Unavailable Sandee Carr Primary Care Unavailable Unallocated , Chanas Provider Primary Care Provi kristina Gonzalo Sawyer Referring Unavailable Gonzalo Sawyer Attending Unavailable Gonzalo Sawyer Admitting Unavailable Medications Current Medications Medication Drug Class(es) Dates Sig (Normalized) Sig (Original) acetaminophen 325 mg / HYDROcodone bitartrate 5 mg oral tablet (2 sources) Opioid Agonist Start: 09-30-2024 take 1 tablet by mouth every six hours as needed for pain Hydrocodone-Acet aminophen 5-325 mg tablet Active 1 TAB PO Q6H as needed for pain 12 3 September 30, 2024 [id number] 200 actuat albuterol 0.09 mg/actuat metered dose inhaler (6 sources) beta2-Adrenergic Agonist Start: 10-07-2022 Albuterol Sulfate (Proair Hfa) 90 mcg/actuation HFA aerosol inhaler Active 1 INH INHALATION EVERY 4-6 HOURS as needed for shortness of breath or wheezing 8.5 October 07, 2022 12:00am ALPRAZolam 0.25 mg oral tablet (11 sources) Benzodiazepine Start: 08-27-2021 take 1 tablet by mouth twice daily as needed for anxiety Alprazolam 0.25 mg tablet Active 0.25 MG PO Twice daily as needed for Anxiety August 26, 2021 11:00pm take 1 tablet by mouth once gage y ALPRAZolam (Xanax) 0.5 MG tablet take 1 tablet by mouth daily if needed Active amoxicillin 875 mg / clavulanate 125 mg oral tablet (9 sources) Penicillin-class Antibacterial Start: 09-30-2024 take 1 tablet by mouth twice daily Amoxicillin-Pot Clavulanate 875-125 mg tablet Active 1 TAB PO Twice daily September 30, 2024 12:00am Start: 10-07-2022 End: 02-07-2023 take 1 tablet by mouth twice daily Amoxicillin-Pot Clavulanate 875-125 mg tablet Discontinued 1 TAB PO Twice daily October 07, 2022 12:00am February 07, 2023 9:02am brompheniramine maleate 0.4 mg/ml / dextromethorphan hydrobromide 2 mg/ml / pseudoephedrine hydrochloride 6 mg/ml oral solution (7 sources) alpha-Adrenergic Agonist, Uncompetitive E-nldrpg-S-aspartate Receptor Antagonist, Sigma-1 Agonist Start: 10-07-2022 take 1 mL by mouth four times daily as needed Hiiuzxvlzcpzsit-Yoroqvskx-Nb (Bromfed Dm) 2-30-10 mg/5 mL syrup Active 5 ML PO Four times daily as needed for cold symptoms October 07, 2022 12:00am cyclobenzaprine hydrochloride 10 mg oral tablet (6 sources) Muscle Relaxant Start: 02-07-2023 take 1 tablet by mouth three times daily as needed for muscle spasms Cyclobenzaprine 10 mg tablet Active 10 MG PO Three times daily as needed for muscle spasm February 06, 2023 11:00pm ketorolac tromethamine 10 mg oral tablet (6 sources) Nonsteroidal Anti-inflammatory Drug, Cyclooxygenase Inhibitor Start: 02-07-2023 take 1 tablet by mouth every six hours as needed for pain Ketorolac 10 mg tablet Active 10 MG PO Q6H as needed for pain February 06, 2023 11:00pm ondansetron 4 mg oral tablet (16 sources) Serotonin-3 Receptor Antagonist Start: 08-27-2021 take 1 tablet by mouth every six hours as needed for nausea and vomitin g Ondansetron Hcl (Zofran) 4 mg tablet Active 4 MG PO Q6H as needed for nausea and vomiting August 26, 2021 11:00pm Start: 12-26-2017 End: 12-31-2017 take 1 tablet by mouth every eight hours as needed for nausea and vomiting Ondansetron Hcl (Zofran) 4 mg tablet Discontinued 4 MG PO Q8H as needed for nausea and vomiting 15 December 26, 2017 1:49pm December 30, 2017 12:00am December 31, 2017 12:03am predniSONE 20 mg oral tablet (7 sources) Start: 10-07-2022 Prednisone 20 mg tablet Active 0 .ROUTE .COMPLEX 18 October 07, 2022 12:00am 3 tabs a day for 3 days, 2 tabs a day for 3 days, 1 tab a day for 3 days promethazine hydrochloride 25 mg oral tablet (14 sources) Phenothiazine Start: 02-07-2023 take 1 tablet by mouth every six hours as needed for headache Promethazine 25 mg tablet Active 25 MG PO Q6H as needed for headache February 06, 2023 11:00pm Start: 12-26-2017 End: 08-27-2021 take 1 tablet by mouth every four to six hours as needed for nausea and vomiting Promethazine 25 mg tablet Discontinued 25 MG PO EVERY 4-6 HOURS as needed for nausea and vomiting December 26, 2017 12:00am August 27, 2021 12:17pm SUMAtriptan 50 mg oral tablet (11 sources) Serotonin-1b and Serotonin-1d Receptor Agonist Start: 04-27-2024 SUMAtriptan (Imitrex ) 50 MG tablet take 1 tablet by mouth AT THE START OF MIGRAINE. MAY REPEAT IN 3 ... (REFER TO PRESCRIPTION NOTES). 04/27/2024 Active Start: 08-27-2021 take 1 tablet by mouth once Gibson matriptan Succinate (Imitrex) 25 mg Tablet Active 25 MG PO Once August 26, 2021 11:00pm Completed/Discontinued Medications Medication Drug Class(es) Dates Sig (Normalized) Sig (Original) cimetidine 300 mg oral tablet (8 sources) Histamine-2 Receptor Antagonist Start: 12-26-2017 End: 08-27-2021 take 1 tablet by mouth four times daily Cimetidine 300 mg Tablet Discontinued 300 MG PO Four times daily December 26, 2017 12:00am August 27, 2021 12:17pm Doxylamine-Pyridox ine (Vit B6) (Diclegis) 10-10 mg tablet,delayed release (DR/EC) (8 sources) Start: 01-01-2018 End: 08-27-2021 take 1 tablet by mouth twice daily in the morning Doxylamine-Pyridoxi ne (Vit B6) (Diclegis) 10-10 mg tablet,delayed release (DR/EC) Discontinued 1 TAB PO Twice daily 60 January 01, 2018 12:00am August 27, 2021 12:17pm administer on empty stomach; swallow whole; do not crush/chew; administer 1 tab in the morning and 1 tab in the mid-afternoon Start: 01-01-2018 End: 08-27-2021 take 1 tablet by mouth twice daily in the morning Doxylamine-Pyridoxine (Vit B6) (Diclegis) 10-10 mg tablet,delayed release (DR/EC) Discontinued 1 TAB PO Twice daily 60 January 01, 2018 1:00am August 27, 2021 1:17pm administer on empty stomach; swallow whole; do not crush/chew; administer 1 tab in the morning and 1 tab in the mid-afternoon Prenat.Vits,Doron,Zzc-Pohr-Tou ic (6 sources) Start: 12-26-2017 End: 08-27-2021 take 1 tablet by mouth once daily Prenat.Vits,Doron,Qri-Kzrd-Itrmy Discontinued 1 TAB PO Daily 100 December 26, 2017 12:00am August 27, 2021 12:17pm Start: 12-26-2017 End: 08-27-2021 take 1 tablet by mouth once daily Prenat.Vits,Doron,Quw-Onlw-Qbsqq Discontin ued 1 TAB PO Daily 100 December 26, 2017 1:00am August 27, 2021 1:17pm Prenat.Vits,Doron,Nca-Niaw-Xxb ic tablet (2 sources) Start: 12-26-2017 End: 08-27-2021 take 1 tablet by mouth once daily Prenat.Vits,Doron,Wlm-Qrlc-Nwbzw tablet Discontinued 1 TAB PO Daily 100 December 26, 2017 12:00am August 27, 2021 12:17pm prochlorperazine 10 mg oral tablet (8 sources) Pheno thiaz ine Start: 12-26-2017 End: 08-27-2021 Prochlorperazine Maleate 10 mg Tablet Discontinued 10 MG PO every 6 to 8 hours as needed for Nausea And Vomiting December 26, 2017 12:00am August 27, 2021 12:17pm propylthiouracil 50 mg oral tablet (8 sources) Thyro id Hormo ne Synth esis Inhib itor Start: 01-01-2018 End: 08-27-2021 take 1 tablet by mouth twice daily Propylthiouracil 50 mg tablet Discontinued 50 MG PO Twice daily January 01, 2018 12:00am August 27, 2021 12:17pm Problems Active Problems Problem Classification Problem Date Documented Da te Episodic/Chronic Abdominal pain (10 sources) Abdominal pain; Translations: [Unspecified abdominal pain] Onset: 07-12-2024 Resolved: 08-28-2024 02-07-2023 Episodic Chronic obstructive pulmonary disease and bronchiectasis (10 sources) Bronchitis; Translations: [Bronchitis, not specified as acute or chronic] Onset: 08-28-2024 Resolved: 08-28-2024 10-07-2022 Episodic E Codes: Natural/environment (1 source) Bitten by dog, initial encounter; Translations: [Bitten by dog, initial encounter] Onset: 09-30-2024 Episodic Fluid and electrolyte disorders (20 sources) Dehydration; Translations: [Dehydration] Onset: 08-28-2024 Resolved: 08-28-2024 01-01-2018 Episodic Headache; including migraine (9 sources) Headache; Translations: [Headache] Onset: 08-28-2024 Resolved: 08-28-2024 02-07-2023 Episodic Hemorrhage during ; abruptio placenta; placenta previa (11 sources) Threatened miscarriage; Translations: [Threatened ] Onset: 08-28-2024 Resolved: 08-28-2024 01-01-2018 Episodic Nutritional deficiencies (1 source) Vitamin D deficiency, unspecified; Translations: [Vitamin D deficiency, unspecified] Onset: 06-30-2024 Chronic Open wounds of extremities (3 sources) Dog bite of upper arm; Translations: [Open bite of right upper arm, initial encounter] Onset: 09-30-2024 09-30-2024 Episodic Other complications of (11 sources) Hyperemesis gravidarum before end of 22 week gestation with carbohydrate depletion; Translations: [Hyperemesis gravidarum with metabolic disturbance] Onset: 08-28-2024 Resolved: 08-28-2024 01-01-2018 Episodic Other complications of (15 sources) Nausea and vomiting; Translations: [Vomiting of , unspecified] Onset: 08-28-2024 Resolved: 08-28-2024 12-26-2017 Episodic Other complications of (4 sources) Vomiting of , unspecified; Translations: [Nausea and vomiting during ] 12-26-2017 Episodic Other endocrine disorders (3 sources) Disorder of parathyroid gland; Translations: [Disorder of parathyroid gland, unspecified] Onset: 08-28-2024 08-28-2024 Chronic Other endocrine disorders (2 sources) Primary hyperparathyroidism ; Translations: [Primary hyperparathyroidism ] 08-30-2024 Chronic Other lower respiratory disease (6 sources) Wheezing; Translations: [Wheezing] 10-07-2022 Episodic Other upper respiratory infections (10 sources) Pain in throat; Translations: [Acute pharyngitis, unspecified] Onset: 08-28-2024 Resolved: 08-28-2024 10-07-2022 Episodic Thyroid disorders (4 sources) Hyperthyroidism; Translations: [Thyrotoxicosis, unspecified without thyrotoxic crisis or storm] Onset: 01-21-2018 08-28-2024 Chronic Past or Other Problems Problem Classification Problem Date Documented Da te Episodic/Chronic Malaise and fatigue (1 source) Other fatigue; Translations: [Other fatigue] Onset: 06-30-2024 Episodic Spontaneous (4 sources) Incomplete spontaneous without complication; Translations: [INCOMPL SPONT AB W/O COMPLICATION] Onset: 08-03-2017 Episodic Results Test Name Value Interpretation Reference Range Facility BD Bone Density DEXAon 11-28 BD Bone Density DEXA Exam Date/Time: 11/24/2024 10:52 EST Reason for Exam: E21.0 Report IMPRESSION: OSTEOPENIA. The 10 year probability (FRAX) of a major osteoporotic fracture based on the femoral neck bone marrow density is not calculated since patient is not within the FRAX age range of ages 40 to 90. The NOF/ISD guideline recommend FRAX for postmenopausal patients (not on treatment) if the lowest T-score for Spine(L1-L4), Femur Neck or Femur Total indicates low bone density (T score -1.0 to -2.5, osteopenia). EXAM: BD Bone Density DEXA CLINICAL HISTORY: E21.0. COMPARISON: None. Baseline. COMMENTS: The lumbar spine and both hips were scanned. The mean bone mineral density from L1 to L4 is 0.991 g/cm2 and this value is -1.6 standard of deviation below the standard reference value for a young adult. Bone mineral density of the left femoral neck is 0.762 g/cm2 and this value is -2.0 standard of deviation below the standard reference value. Bone mineral density of the right femoral neck is 0.780 g/cm2 and this value is -1.9 standard of deviation below the standard reference value. The lowest value(s) meet WHO criteria for osteopenia. RECOMMENDATIONS: 1. All patients should optimize her calcium and vitamin D intake. 2. Consider FDA-approved medical therapies in postmenopausal women and minimal age 50 years and older, based on the following: - hip or vertebral (clinical or morphometric) fracture. - T-score less than or equal to -2.5 at the femoral neck or spine after the appropriate evaluation to exclude secondary causes. - Low bone density (T score between -1.0 and -2.5 at the femoral neck or spine) and a 10 year probability of hip fracture greater than or equal to 3% or a 10-year probability of a major osteoporosis-related fracture greater than or equal to 20% based on FRAX calculation. - Clinician judgment and/or patient preferences may indicate treatment for people with 10 year fracture probability above or below these levels. - Further guidance on treatment can be found at the National Osteoporosis Foundation's website: bonesource.org 3. Patients with diagnosis of osteoporosis or high risk for fracture should have regular bone mineral density tests. For patients eligible for Medicare, routine testing is allowed once every 2 years. Testing frequency can be increased to 1 year for patient's history of rapidly progressing disease, those who are receiving or discontinuing medical therapy to restore bone mass or have additional risk factors. Report Ordering Provider: Gonzalo Sawyer FINAL REPORT Dictated: 11/28/2024 8:11 am Andres Craig MD Signed (Electronic Signature): 11/28/2024 8:11 am Signed by: Andres Craig MD Transcribed by: COLTEN Technologist: IHLDA Avalos [facility] NM Parathyroid Planar and Sp ecton 11-28-2024 NM Parathyroid Planar and Spect Exam Date/Time: 11/24/2024 15:05 EST Reason for Exam: E21.0 Report IMPRESSION: LEFT PARATHYROID ADENOMA. EXAM: NM Parathyroid Planar and Spect DATE: 11/24/2024 10:47 AM CLINICAL HISTORY: E21.0. COMPARISON: Outside thyroid ultrasound 07/12/2024. TECHNIQUE: Approximately 10 minutes and 2 hours after the intravenous administration of approximately 27.1 mCi of technetium 99m sestamibi, planar and SPECT imaging of the neck and chest was performed. Volume rendered and multiplanar reconstructions were obtained on a dedicated workstation. FINDINGS: Asymmetric increased and persistent radiotracer accumulation along the posterior aspect of the left thyroid lobe is consistent with a parathyroid adenoma, correlating to the outside thyroid ultrasound. There is no other abnormal radiotracer accumulation identified elsewhere. Ordering Provider: Gonzalo Sawyer FINAL REPORT Dictated: 11/28/2024 7:11 am Shawn Lake MD Signed (Electronic Signature): 11/28/2024 7:11 am Signed by: Shawn Lake MD Transcribed by: COLTEN Technologist: DIOGENES Technical Comments Calcium Level (Normal 8.9 - 11.1 mg/dL): 11.7 PTH (Normal 15 - 65 pg/mL): 133 Dose (mCi Tc99m Sestamibi): 27.1 Imaging Post Administration: 10 min and 2 hours Normal [facility] X-ray reportOrdered By: Matthieu Vanessa on 09-30-2024 Study report [facility] [place] [address] XRay Report Signed Patient: Meche Rodriguez MR#: [id number] : 1985 Acct:[id number] Age/Sex: 39 / F ADM Date: 4 Loc: ER Room: Type: [facility] ER Attending Dr: Copies to: Joo Andujar PA-C~ Ordering Provider: Joo Andujar PA-C Date of Service: 09/30/24 XR/XR forearm RT 2V*: Animal Bite 2 views RIGHT plain film COMPARISON: None HISTORY: Bitten by dog. ACUTE FINDINGS: None DEGENERATIVE CHANGE: Unremarkable SOFT TISSUE FINDINGS: Soft tissue swelling with subcutaneous air. No radiodenseforeign body. JOINT EFFUSION: None POSTOP CHANGES: None BONY MINERALIZATION: Adequate XR/XR forearm RT 2V* IMPRESSION: Soft tissue defect. No radiodense foreign body. No acute bony findings. Impression dictated by: Davide Vanessa M.D.09/30/2024 10:08 PM Dictation Location: [place] [address] Transcribed By: [facility] 09/30/242207 Dictated By: Davide Vanessa DO 09/30/242206 Signed By: 09/30/242207 [facility] XR forearm RT 2V*on 09-30-20 XR forearm RT 2V* [facility] [address] [place] [address] [place] [address] XRay Report Signed Patient: Meche Rodriguez MR#: [id number] : 1985 Acct:[id number] Age/Sex: 39 / F ADM Date: 09/30/24 Loc: ER Room: Type: [facility] ER Attending Dr: Copies to: Joo Andujar PA-C Ordering Provider: Joo Andujar PA-C Date of Service: 09/30/24 XR/XR forearm RT 2V*: Animal Bite 2 views RIGHT plain film COMPARISON: None HISTORY: Bitten by dog. ACUTE FINDINGS: None DEGENERATIVE CHANGE: Unremarkable SOFT TISSUE FINDINGS: Soft tissue swelling with subcutaneous air. No radiodense foreign body. JOINT EFFUSION: None POSTOP CHANGES: None BONY MINERALIZATION: Adequate XR/XR forearm RT 2V* IMPRESSION: Soft tissue defect. No radiodense foreign body. No acute bony findings. Impression dictated by: Davide Vanessa M.D.09/30/2024 10:08 PM Dictation Location: [place] [address] Transcribed By: [facility] 09/30/242207 Dictated By: Davide Vanessa DO 09/30/242206 Signed By: 09/30/242207 Normal [facility] US thyroidon 07-12-2024 US thyroid [facility] [address] [address] Ultrasound Report Signed Patient: Meche Rodriguez MR#: [id number] : 1985 Acct:[id number] Age/Sex: 39 / F ADM Date: 07/12/24 Loc: UL Room: Type: [facility] CLI Attending Dr: REMA Avendaño APRN Ordering Provider: Sandee Carr APRN, NP-C Date of Service: 07/12/24 US/US thyroid: Hyperthyroidism Copies to: Sandee Carr APRN, NP-C THYROID ULTRASOUND CLINICAL DATA: Hyper thyroidism COMPARISON: None The right thyroid lobe measures 5.3 x 0.9 x 1.5 cm. The left lobe measures 4.1 x 0.9 x 1.9 cm. The isthmus measures 2 - 3 mm . Thyroid echotexture is uniform. There is no significant hyperemia. At the inferior lateral right thyroid lobe there is a small colloid cyst with mural nodule measuring 5 x 2 x 4 mm. Adjacent to the mid to upper pole of the left thyroid lobe there is an elongate hypoechoic area which measures approximately 3.2 x 0.5 x 1.0 cm in size. There is surrounding vascularity. It is uncertain if this could be parathyroid in origin. It might also be a lymph node. There are no other prior studies for correlation. US/US thyroid IMPRESSION: TINY RIGHT COLLOID CYSTS. INDETERMINATE HYPOECHOIC ELONGATED AREA POSTERIOR TO THE LEFT THYROID LOBE, DESCRIBED. Impression dictated by: Aileen Reyna M.D.07/12/2024 2:32 PM Dictation Location: [place] [address] Tech: Mariana Maradiaga Transcribed By: NICKY 07/12/24 1432 Dictated By: Aileen Reyna MD 07/12/24 1425 Signed By: 07/12/24 1432 Normal [facility] US transvaginalon 07-12-2024 US transvaginal [facility] [place] [address] Ultrasound Report Signed Patient: Meche Rodriguez MR#: [id number] 357 : 1985 Acct:[id number] Age/Sex: 39 / F ADM Date: 07/12/24 Loc: Room: Type: [facility] Attending Dr: REMA Avendaño APRN Ordering Provider: Sandee Carr APRN, NP-C Date of Service: 07/12/24 US/US pelvic complete: Pelvic pain ([id number]) US/US transvaginal: PELVIC PAIN Copies to: Sandee Carr APRN, NP-C Pelvic ultrasound. Reason for exam: Pelvic numbness/discomfort around scar. Comparison: none Technique: Transabdominal imaging of the uterus and ovaries was performed. Transvaginal imaging of the uterus and ovaries was also obtained. Additional spectral Doppler analysis of the ovaries was also obtained. Findings: Uterus measures 9.9 x 5.2 x 5.3 cm. A scar is noted with a small amount of fluid present within the region. Myometrium appears heterogenous with a fibroid noted involving the posterior aspect of the right uterus measuring 2.1 x 1.6 x 1.8 cm. Endometrium measures 6.6 mm. Fluid is seen within the endometrial canal. No free fluid is seen. Right ovary measures 2.1 x 1.3 x 3.2 cm. Left ovary measures 2.7 x 1.4 x 2.9 cm. No evidence of adnexal mass or cyst. Normal arterial and venous Doppler waveforms. US/US transvaginal Impression: 1. Fibroid uterus. 2. scar is noted a small amount of fluid within the region. No focal abnormality is seen. 3. Ovaries appear unremarkable. Impression dictated by: Odin Zamarripa Jr., D.OShanti07/12/2024 12:47 PM Dictation Location: [place] [address] Tech: Mariana Maradiaga Transcribed By: NICKY 07/12/24 1247 Dictated By: Odin Zamarripa Jr, DO 07/12/24 1240 Signed By: 07/12/24 1247 Normal [facility] Alanine aminotransferase [En zymatic activity/volume] in Serum or PlasmaOrdered By: Sandee Carr on 06-30-2024 ALT [Catalytic activity/Vol] 17 U/L Normal 7-52 [facility] Comment on above: Order Comment: Reaso n for Exam Fatigue, unspecified type Reason for Exam Hyperthyroidism Reason for Exam Hypovitaminosis D Performed By: #### C BC, [id number], [id number], TSH3 wRFLX, CMP #### [facility] [address] [place] [address] Albumin [Mass/volume] in Ser um or Plasma by Bromocresol green (BCG) dye binding methoOrdered By: Sandee Carr on 06-30-2024 Albumin BCG dye [Mass/Vol] 4.7 g/dL 3.5-5.7 [facility] Alkaline phosphatase [Enzyma tic activity/volume] in Serum or PlasmaOrdered By: Sandee Carr on 06-30-2024 ALP [Catalytic activity/Vol] 90 U/L Normal 34-104 [facility] Comment on above: Order Comment: Reaso n for Exam Fatigue, unspecified type Reason for Exam Hyperthyroidism Reason for Exam Hypovitaminosis D Performed By: #### C BC, [id number], [id number], TSH3 wRFLX, CMP #### [facility] [address] [place] [address] Aspartate aminotransferase [ Enzymatic activity/volume] in Serum or PlasmaOrdered By: Sandee Carr on 06-30-2024 AST [Catalytic activity/Vol] 15 U/L Normal 13-39 [facility] Comment on above: Order Comment: Reaso n for Exam Fatigue, unspecified type Reason for Exam Hyperthyroidism Reason for Exam Hypovitaminosis D Performed By: #### C BC, [id number], [id number], TSH3 wRFLX, CMP #### [facility] [address] [place] [address] Automated basophil %Ordered By: Sandee Carr on 06-30-2024 Basophils/100 WBC (Bld) 0.7 % Normal . [facility] Comment on above: Order Comment: Reaso n for Exam Fatigue, unspecified type Performed By: #### C BC, [id number], [id number], TSH3 wRFLX, CMP #### [facility] [address] [place] [address] Automated basophil countOrde red By: Sandee Carr on 06-30-2024 Basophils (Bld) [#/Vol] 0.0 10*3/uL Normal 0.0-0.2 [facility] Comment on above: Order Comment: Reaso n for Exam Fatigue, unspecified type Result Comment: PERF ORMED BY: [place] [address] PATHOLOGIST AUT[employer]ATED [employer] SYSTEMS TECHNICIAN TIFFANIE ROMERO M.D. Performed By: #### C BC, [id number], [id number], TSH3 wRFLX, CMP #### [facility] [address] [place] [address] Automated blood monocyte cou ntOrdered By: Sandee Carr on 08-15-2024 Monocytes (Bld) [#/Vol] 0.4 10*3/uL Normal 0.0-0.8 [facility] Comment on above: Order Comment: Reaso n for Exam Fatigue, unspecified type Performed By: #### C BC, [id number], [id number], TSH3 wRFLX, CMP #### [facility] [address] [place] [id number] [facility] Automated eosinophil %Ordere d By: Sandee Carr on 06-30-2024 Eosinophils/100 WBC (Bld) 0.7 % Normal . [facility] Comment on above: Order Comment: Reaso n for Exam Fatigue, unspecified type Performed By: #### C BC, [id number], [id number], TSH3 wRFLX, CMP #### [facility] [address] [place] [address] Automated eosinophil countOr dered By: Sandee Carr on 06-30-2024 Eosinophils (Bld) [#/Vol] 0.0 10*3/uL Normal 0.0-0.45 [facility] Comment on above: Order Comment: Reaso n for Exam Fatigue, unspecified type Performed By: #### C BC, [id number], [id number], TSH3 wRFLX, CMP #### [facility] [address] [place] [address] Automated monocyte %Ordered By: Sandee Carr on 06-30-2024 Monocytes/100 WBC (Bld) 7.0 % Normal . [facility] Comment on above: Order Comment: Reaso n for Exam Fatigue, unspecified type Performed By: #### C BC, [id number], [id number], TSH3 wRFLX, CMP #### [facility] [address] [id number] [place] Automated neutrophil %Ordere d By: Sandee Carr on 06-30-2024 Neutrophils/100 WBC (Bld) 65.2 % Normal . [facility] Comment on above: Order Comment: Reaso n for Exam Fatigue, unspecified type Performed By: #### C BC, [id number], [id number], TSH3 wRFLX, CMP #### [facility] [address] [place] [address] [facility] Bilirubin.total [Mass/volume ] in Serum or PlasmaOrdered By: Sandee Carr on 06-30-2024 Bilirubin [Mass/Vol] 0.6 mg/dL Normal 0.3-1.0 [facility] Comment on above: Order Comment: Reaso n for Exam Fatigue, unspecified type Reason for Exam Hyperthyroidism Reason for Exam Hypovitaminosis D Performed By: #### C BC, [id number], [id number], TSH3 wRFLX, CMP #### [facility] [address] [id number] [place] Calcium [Mass/volume] in Ser um or PlasmaOrdered By: Sandee Carr on 06-30-2024 Calcium [Mass/Vol] 11.7 mg/dL High 8.6-10.3 [facility] Comment on above: Order Comment: Reaso n for Exam Fatigue, unspecified type Reason for Exam Hyperthyroidism Reason for Exam Hypovitaminosis D Performed By: #### C BC, [id number], [id number], TSH3 wRFLX, CMP #### [facility] [address] [id number] [facility] Carbon dioxide, total [Moles /volume] in Serum or PlasmaOrdered By: Sandee Carr on 06-30-2024 CO2 [Moles/Vol] 26.2 mmol/L Normal 21.0-31.0 [facility] Comment on above: Order Comment: Reaso n for Exam Fatigue, unspecified type Reason for Exam Hyperthyroidism Reason for Exam Hypovitaminosis D Performed By: #### C BC, [id number], [id number], TSH3 wRFLX, CMP #### [facility] [address] [id number] [place] Chloride [Moles/volume] in S gretchen or PlasmaOrdered By: Sandee Carr on 06-30-2024 Chloride [Moles/Vol] 106 mmol/L Normal 98-107 [facility] Comment on above: Order Comment: Reaso n for Exam Fatigue, unspecified type Reason for Exam Hyperthyroidism Reason for Exam Hypovitaminosis D Performed By: #### C BC, [id number], [id number], TSH3 wRFLX, CMP #### [facility] [address] Complete Blood Count Auto Di ffon 06-30-2024 Mean Corpuscular HGB Conc 33.9 g/dL Normal 32.0-35.0 [facility] Comment on above: Order Comment: Reaso n for Exam Fatigue, unspecified type Performed By: #### C BC, [id number], [id number], TSH3 wRFLX, CMP #### [facility] [address] [place] [address] NRBC% 0.1 /100{WBC} Normal 0-0.5 [facility] Comment on above: Order Comment: Reaso n for Exam Fatigue, unspecified type Performed By: #### C BC, [id number], [id number], TSH3 wRFLX, CMP #### [facility] [address] [place] [address] Comprehensive Metabolic Pane neelam 06-30-2024 Albumin [Mass/Vol] 4.7 g/dL Normal 3.5-5.7 [facility] Comment on above: Order Comment: Reaso n for Exam Fatigue, unspecified type Reason for Exam Hyperthyroidism Reason for Exam Hypovitaminosis D Performed By: #### C BC, [id number], [id number], TSH3 wRFLX, CMP #### [address] GFR/1.73 sq M.predicted MDRD (S/P/Bld) [Vol rate/Area] mL/min/{1.73_m2} Normal [facility] Comment on above: Order Comment: Reaso n for Exam Fatigue, unspecified type Reason for Exam Hyperthyroidism Reason for Exam Hypovitaminosis D Performed By: #### C BC, [id number], [id number], TSH3 wRFLX, CMP #### [facility] [address] [place], [place] [id number] [facility] Creatinine [Mass/volume] in Serum or PlasmaOrdered By: Sandee Carr on 06-30-2024 Creatinine [Mass/Vol] 0.66 mg/dL Normal 0.60-1.20 [facility] Comment on above: Order Comment: Reaso n for Exam Fatigue, unspecified type Reason for Exam Hyperthyroidism Reason for Exam Hypovitaminosis D Performed By: #### C BC, [id number], [id number], TSH3 wRFLX, CMP #### [facility] [address] Erythrocyte distribution wid th [Ratio] by Automated countOrdered By: Sandee Carr on 06-30-2024 Erythrocyte distribution width (RBC) [Ratio] 12.7 % Normal 11.9-15.3 [facility] Comment on above: Order Comment: Reaso n for Exam Fatigue, unspecified type Performed By: #### C BC, [id number], [id number], TSH3 wRFLX, CMP #### [facility] [address] Erythrocytes [#/volume] in B lood by Automated countOrdered By: Sandee Carr on 06-30-2024 RBC (Bld) [#/Vol] 4.53 10*6/uL Normal 3.60-5.00 [facility] Comment on above: Order Comment: Reaso n for Exam Fatigue, unspecified type Performed By: #### C BC, [id number], [id number], TSH3 wRFLX, CMP #### [facility] [address] Folate [Mass/volume] in Seru m or PlasmaOrdered By: Sandee Carr on 06-30-2024 Folate [Mass/Vol] 11.0 ng/mL >5.9 [facility] Comment on above: Folate reference ran ge: >5.9 ng/mlThe WHO technical consultation on folate and vitamin [id number] has determined that folate concentrations lessthan 4 ng/ml are considered deficient. Glucose [Mass/volume] in Ser um or PlasmaOrdered By: Sandee Carr on 06-30-2024 Glucose [Mass/Vol] 82 mg/dL Normal 70-100 [facility] Comment on above: ADA recommended refe rence rangeRandom Glucose Reference Range is dependent on time and content of last meal. Glucose of more than 200 mg/dL in a nonstressed, ambulatory subject supports the diagnosis of Diabetes Mellitus. Order Comment: Reaso n for Exam Fatigue, unspecified type Reason for Exam Hyperthyroidism Reason for Exam Hypovitaminosis D Result Comment: [facility] Glucose Reference Range is dependent on time and content of last meal. Glucose of more than 200 mg/dL in a nonstressed, ambulatory subject supports the diagnosis of Diabetes Mellitus. ADA recommended reference range Performed By: #### C BC, [id number], [id number], TSH3 wRFLX, CMP #### [facility] [address] Hematocrit [Volume Fraction] of Blood by Automated countOrdered By: Sandee Carr on 06-30-2024 Hematocrit (Bld) [Volume fraction] 42.2 % Normal 34.0-46.4 [facility] Comment on above: Order Comment: Reaso n for Exam Fatigue, unspecified type Performed By: #### C BC, [id number], [id number], TSH3 wRFLX, CMP #### [address] Hemoglobin [Mass/volume] in BloodOrdered By: Sandee Carr on 06-30-2024 Hemoglobin (Bld) [Mass/Vol] 14.3 g/dL Normal 11.8-15.4 [facility] Comment on above: Order Comment: Reaso n for Exam Fatigue, unspecified type Performed By: #### C BC, [id number], [id number], TSH3 wRFLX, CMP #### [address] Leukocytes [#/volume] correc jeff for nucleated erythrocytes in Blood by Automated counOrdered By: Sandee Carr on 06-30-2024 WBC corrected for nucl RBC Auto (Bld) [#/Vol] 5.6 10*3/uL 3.8-11.6 [facility] Leukocytes [#/volume] in Blo od by Automated countOrdered By: Sandee Carr on 06-30-2024 WBC (Bld) [#/Vol] 5.6 10*3/uL Normal 3.8-11.6 [facility] Comment on above: Order Comment: Reaso n for Exam Fatigue, unspecified type Performed By: #### C BC, [id number], [id number], TSH3 wRFLX, CMP #### [facility] [address] Lymphocytes [#/volume] in Bl ood by Automated countOrdered By: Sandee Carr on 06-30-2024 Lymphocytes (Bld) [#/Vol] 1.5 10*3/uL Normal 1.00-4.8 [facility] Comment on above: Order Comment: Reaso n for Exam Fatigue, unspecified type Performed By: #### C BC, [id number], [id number], TSH3 wRFLX, CMP #### [facility] [address] [place] [address] [place] Lymphocytes/100 leukocytes i n Blood by Automated countOrdered By: Sandee Carr on 06-30-2024 Lymphocytes/100 WBC (Bld) 26.4 % Normal . [facility] Comment on above: Order Comment: Reaso n for Exam Fatigue, unspecified type Performed By: #### C BC, [id number], [id number], TSH3 wRFLX, CMP #### [facility] [address] [place] [address] MCH [Entitic mass] by Automa jeff countOrdered By: Sandee Carr on 06-30-2024 MCH (RBC) [Entitic mass] 31.5 pg Normal 24.7-34.3 [facility] Comment on above: Order Comment: Reaso n for Exam Fatigue, unspecified type Performed By: #### C BC, [id number], [id number], TSH3 wRFLX, CMP #### [facility] [address] [place] [address] MCHC Auto (RBC) [Mass/Vol]Or dered By: Sandee Carr on 06-30-2024 MCHC (RBC) [Mass/Vol] 33.9 g/dL 32.0-35.0 [facility] MCV [Entitic volume] by Auto mated countOrdered By: Sandee Carr on 06-30-2024 MCV (RBC) [Entitic vol] 93.1 fL Normal 80-100 [facility] Comment on above: Order Comment: Reaso n for Exam Fatigue, unspecified type Performed By: #### C BC, [id number], [id number], TSH3 wRFLX, CMP #### [facility] [address] [place] [address] Neutrophils [#/volume] in Bl ood by Automated countOrdered By: Sandee Carr on 06-30-2024 Neutrophils (Bld) [#/Vol] 3.6 10*3/uL Normal 1.8-7.7 [facility] Comment on above: Order Comment: Reaso n for Exam Fatigue, unspecified type Performed By: #### C BC, [id number], [id number], TSH3 wRFLX, CMP #### [facility] [address] [place] [address] No Panel InformationOrdered By: Sandee Carr on 06-30-2024 Estimated GFR (CKD-EPI) > 60.0 mL/Min [facility] Creatinine Clearance (Chem N/A [facility] Nucleated erythrocytes [Pres ence] in Blood by Automated countOrdered By: Sandee Carr on 06-30-2024 Nucleated RBC Auto Ql (Bld) 0.1 /100{WBC} 0-0.5 [facility] Platelet mean volume [Entiti c volume] in Blood by Automated countOrdered By: Sandee Carr on 06-30-2024 Platelet mean volume (Bld) [Entitic vol] 10.7 fL Normal 6.3-10.7 [facility] Comment on above: Order Comment: Reaso n for Exam Fatigue, unspecified type Performed By: #### C BC, [id number], [id number], TSH3 wRFLX, CMP #### [facility] [address] [place] [address] Platelets [#/volume] in Bloo d by Automated countOrdered By: Sandee Carr on 06-30-2024 Platelets (Bld) [#/Vol] 274 10*3/uL Normal 150-450 [facility] Comment on above: Order Comment: Reaso n for Exam Fatigue, unspecified type Performed By: #### C BC, [id number], [id number], TSH3 wRFLX, CMP #### [facility] [address] [place] [address] [facility] Potassium [Moles/volume] in Serum or PlasmaOrdered By: Sandee Carr on 06-30-2024 Potassium [Moles/Vol] 4.0 mmol/L Normal 3.5-5.1 [facility] Comment on above: Order Comment: Reaso n for Exam Fatigue, unspecified type Reason for Exam Hyperthyroidism Reason for Exam Hypovitaminosis D Performed By: #### C BC, [id number], [id number], TSH3 wRFLX, CMP #### [facility] [address] [id number] [facility] Protein [Mass/volume] in Ser um or PlasmaOrdered By: Sandee Carr on 06-30-2024 Protein [Mass/Vol] 7.0 g/dL Normal 6.4-8.9 [facility] Comment on above: Order Comment: Reaso n for Exam Fatigue, unspecified type Reason for Exam Hyperthyroidism Reason for Exam Hypovitaminosis D Performed By: #### C BC, [id number], [id number], TSH3 wRFLX, CMP #### [facility] [address] [phone] [facility] Serum globulin measurement b y calculation (mass/volume)Ordered By: Sandee Carr on 06-30-2024 Globulin (S) [Mass/Vol] 2.3 g/dL Normal [facility] Comment on above: Order Comment: Reaso n for Exam Fatigue, unspecified type Reason for Exam Hyperthyroidism Reason for Exam Hypovitaminosis D Performed By: #### C BC, [id number], [id number], TSH3 wRFLX, CMP #### [facility] [address] [place] [address] [facility] Serum or plasma albumin/glob ulin mass ratioOrdered By: Sandee Carr on 06-30-2024 Albumin/Globulin [Mass ratio] 2.0 {ratio} Normal [facility] Comment on above: Order Comment: Reaso n for Exam Fatigue, unspecified type Reason for Exam Hyperthyroidism Reason for Exam Hypovitaminosis D Performed By: #### C BC, [id number], [id number], TSH3 wRFLX, CMP #### [facility] [address] [place] [address] [facility] Serum or plasma anion gap de terminationOrdered By: Sandee Carr on 06-30-2024 Anion gap [Moles/Vol] 10.8 mmol/L Normal 6.0-15.0 [facility] Comment on above: Order Comment: Reaso n for Exam Fatigue, unspecified type Reason for Exam Hyperthyroidism Reason for Exam Hypovitaminosis D Performed By: #### C BC, [id number], [id number], TSH3 wRFLX, CMP #### [facility] [address] [id number] [facility] Sodium [Moles/volume] in Ser um or PlasmaOrdered By: Sandee Carr on 06-30-2024 Sodium [Moles/Vol] 139 mmol/L Normal 136-145 [facility] Comment on above: Order Comment: Reaso n for Exam Fatigue, unspecified type Reason for Exam Hyperthyroidism Reason for Exam Hypovitaminosis D Performed By: #### C BC, [id number], [id number], TSH3 wRFLX, CMP #### [facility] [address] [id number] [facility] Thyroid Stim Hormone w/Rflxo n 06-30-2024 Thyroid Stim Hormone w/Rflx 0.78 u[iU]/mL Normal 0.45-5.33 [facility] Comment on above: Order Comment: Reaso n for Exam Fatigue, unspecified type Reason for Exam Hyperthyroidism Reason for Exam Hypovitaminosis D Performed By: #### C BC, [id number], [id number], TSH3 wRFLX, CMP #### [facility] [address] [phone] [facility] Thyrotropin [Units/volume] i n Serum or PlasmaOrdered By: Sandee Carr on 06-30-2024 TSH Qn 0.78 m[IU]/L 0.45-5.33 [facility] Urea nitrogen [Mass/volume] in Serum or PlasmaOrdered By: Sandee Carr on 06-30-2024 Urea nitrogen [Mass/Vol] 18 mg/dL Normal 7-25 [facility] Comment on above: Order Comment: Reaso n for Exam Fatigue, unspecified type Reason for Exam Hyperthyroidism Reason for Exam Hypovitaminosis D Performed By: #### C BC, [id number], [id number], TSH3 wRFLX, CMP #### [facility] [address] [id number] [facility] Vit. B12/Folate Profileon Folate 11.0 ng/mL Normal >5.9 [facility] Comment on above: Order Comment: Reaso n for Exam Fatigue, unspecified type Reason for Exam Hyperthyroidism Reason for Exam Hypovitaminosis D Result Comment: Ingrid te reference range: >5.9 ng/ml The WHO technical consultation on folate and vitamin b12 deficiencies has determined that folate concentrations less than 4 ng/ml are considered deficient. Performed By: #### C BC, [id number], [id number], TSH3 wRFLX, CMP #### [facility] [address] [place], [place] [id number] [facility] Vitamin B12 ser/plasOrdered By: Sandee Carr on 06-30-2024 Cobalamin (Vitamin B12) [Mass/Vol] 332 pg/mL Normal 180-914 [facility] Comment on above: Order Comment: Reaso n for Exam Fatigue, unspecified type Reason for Exam Hyperthyroidism Reason for Exam Hypovitaminosis D Performed By: #### C BC, [id number], [id number], TSH3 wRFLX, CMP #### [facility] [address] [place], [place] [id number] [facility] Vitamin D 25 Hydroxy Totalon 06-30-2024 Vitamin D 25 Hydroxy Total 32.9 ng/mL Normal 30-100 [facility] Comment on above: Order Comment: Reaso n for Exam Fatigue, unspecified type Reason for Exam Hyperthyroidism Reason for Exam Hypovitaminosis D Result Comment: TIFFANI MIN D STATUS 25([place])VITAMIN D RANGE (ng/mL) Deficient <20 Insufficient 20 to <30 Sufficient 30 to 100 Reference: Elliot MF,Yandy NC, Koki RAMIREZ, et al. Evaluation,treatment, and prevention of vitamin D deficiency; an Endocrine Society clinical practice guideline. JCEM. 2010; 96(7):1911-30. PERFORMED BY: [place] [address] PATHOLOGIST [employer] TECHNICIAN TIFFANIE ROMERO M.D. Performed By: #### C BC, [id number], [id number], TSH3 wRFLX, CMP #### [facility] [address] Vitamin D+Metabolites [Mass/ volume] in Serum or PlasmaOrdered By: Sandee Carr on 06-30-2024 Vitamin D+Metabolites [Mass/Vol] 32.9 ng/mL 30-100 [facility] Comment on above: VITAMIN D STATUS 25( [place])VITAMIN D RANGE (ng/mL) Deficient <20 Insufficient 20 to <30Sufficient 30 to 100Reference: Elliot MF,Yandy NC, Koki RAMIREZ, et al. Evaluation,treatment, and prevention of vitamin D deficiency; an Endocrine Society clinical practice guideline. JCEM. 2010; 96(7):1911-30. Alanine aminotransferase [En zymatic activity/volume] in Serum or PlasmaOrdered By: Odin García on 03-04-2023 ALT [Catalytic activity/Vol] 17 U/L 7-52 [facility] Albumin [Mass/volume] in Ser um or Plasma by Bromocresol green (BCG) dye binding methoOrdered By: Odin García on 03-04-2023 Albumin BCG dye [Mass/Vol] 4.6 g/dL 3.5-5.7 [facility] Alkaline phosphatase [Enzyma tic activity/volume] in Serum or PlasmaOrdered By: Odin García on 03-04-2023 ALP [Catalytic activity/Vol] 96 U/L 34-104 [facility] Aspartate aminotransferase [ Enzymatic activity/volume] in Serum or PlasmaOrdered By: Odin García on 03-04-2023 AST [Catalytic activity/Vol] 13 U/L 13-39 [facility] Basophils Auto (Bld) [#/Vol] Ordered By: Odin García on 03-04-2023 Basophils (Bld) [#/Vol] 0.0 10*3/uL 0.0-0.2 [facility] Basophils/100 WBC Auto (Bld) Ordered By: Odin García on 03-04-2023 Basophils/100 WBC (Bld) 0.4 % . F [facility] Bilirubin.total [Mass/volume ] in Serum or PlasmaOrdered By: Odin García on 03-04-2023 Bilirubin [Mass/Vol] 0.7 mg/dL 0.3-1.0 [facility] Calcium [Mass/volume] in Ser um or PlasmaOrdered By: Odin García on 03-04-2023 Calcium [Mass/Vol] 11.1 mg/dL 8.6-10.3 [facility] Carbon dioxide, total [Moles /volume] in Serum or PlasmaOrdered By: Odin García on 03-04-2023 CO2 [Moles/Vol] 28.8 mmol/L 21.0-31.0 [facility] Chloride [Moles/volume] in S gretchen or PlasmaOrdered By: Odin García on 03-04-2023 Chloride [Moles/Vol] 100 mmol/L 98-107 [facility] Creatinine [Mass/volume] in Serum or PlasmaOrdered By: Odin García on 03-04-2023 Creatinine [Mass/Vol] 0.76 mg/dL 0.60-1.20 [facility] Eosinophils Auto (Bld) [#/Vo l]Ordered By: Odin García on 03-04-2023 Eosinophils (Bld) [#/Vol] 0.0 10*3/uL 0.0-0.45 [facility] Eosinophils/100 WBC Auto (Bl d)Ordered By: Odin García on 03-04-2023 Eosinophils/100 WBC (Bld) 0.2 % . [facility] Erythrocyte distribution wid th Auto (RBC) [Ratio]Ordered By: Odin García on 03-04-2023 Erythrocyte distribution width (RBC) [Ratio] 12.4 % 11.9-15.3 [facility] Globulin Calc (S) [Mass/Vol] Ordered By: Odin García on 03-04-2023 Globulin (S) [Mass/Vol] 2.8 g/dL [facility] Glucose [Mass/volume] in Ser um or PlasmaOrdered By: Odin García on 03-04-2023 Glucose [Mass/Vol] 82 mg/dL 70-100 [facility] Comment on above: ADA recommended refe rence rangeRandom Glucose Reference Range is dependent on time and content of last meal. Glucose of more than 200 mg/dL in a nonstressed, ambulatory subject supports the diagnosis of Diabetes Mellitus. Hematocrit Auto (Bld) [Volum e fraction]Ordered By: Odin García on 03-04-2023 Hematocrit (Bld) [Volume fraction] 43.8 % 34.0-46.4 [facility] Hemoglobin [Mass/volume] in BloodOrdered By: Odin García on 03-04-2023 Hemoglobin (Bld) [Mass/Vol] 14.6 g/dL 11.8-15.4 [facility] Leukocytes [#/volume] correc jeff for nucleated erythrocytes in Blood by Automated counOrdered By: Odin García on 03-04-2023 WBC corrected for nucl RBC Auto (Bld) [#/Vol] 6.9 10*3/uL 3.8-11.6 [facility] Lymphocytes Auto (Bld) [#/Vo l]Ordered By: Odin García on 03-04-2023 Lymphocytes (Bld) [#/Vol] 1.2 10*3/uL 1.00-4.8 [facility] Lymphocytes/100 WBC Auto (Bl d)Ordered By: Odin García on 03-04-2023 Lymphocytes/100 WBC (Bld) 16.6 % . [facility] MCH Auto (RBC) [Entitic mass ]Ordered By: Odin García on 03-04-2023 MCH (RBC) [Entitic mass] 30.6 pg 24.7-34.3 [facility] MCHC Auto (RBC) [Mass/Vol]Or dered By: Odin García on 03-04-2023 MCHC (RBC) [Mass/Vol] 33.4 g/dL 32.0-35.0 [facility] MCV Auto (RBC) [Entitic vol] Ordered By: Odin García on 03-04-2023 MCV (RBC) [Entitic vol] 91.8 fL 80-100 [facility] Monocytes Auto (Bld) [#/Vol] Ordered By: Odin García on 03-04-2023 Monocytes (Bld) [#/Vol] 0.7 10*3/uL 0.0-0.8 [facility] Monocytes/100 WBC Auto (Bld) Ordered By: Odin García on 03-04-2023 Monocytes/100 WBC (Bld) 10.0 % . [facility] Neutrophils Auto (Bld) [#/Vo l]Ordered By: Odin García on 03-04-2023 Neutrophils (Bld) [#/Vol] 5.1 10*3/uL 1.8-7.7 [facility] Neutrophils/100 WBC Auto (Bl d)Ordered By: Odin García on 03-04-2023 Neutrophils/100 WBC (Bld) 72.8 % . [facility] No Panel InformationOrdered By: Odin García on 03-04-2023 Estimated GFR (CKD-EPI) > 60.0 mL/Min [facility] Creatinine Clearance (Chem N/A [facility] Nucleated erythrocytes [Pres ence] in Blood by Automated countOrdered By: Odin García on 03-04-2023 Nucleated RBC Auto Ql (Bld) 0.1 /100{WBC} 0-0.5 [facility] Platelet mean volume Auto (B ld) [Entitic vol]Ordered By: Odin García on 03-04-2023 Platelet mean volume (Bld) [Entitic vol] 10.3 fL 6.3-10.7 [facility] Platelets Auto (Bld) [#/Vol] Ordered By: Odin García on 03-04-2023 Platelets (Bld) [#/Vol] 238 10*3/uL 150-450 [facility] Potassium [Moles/volume] in Serum or PlasmaOrdered By: Odin García on 03-04-2023 Potassium [Moles/Vol] 4.4 mmol/L 3.5-5.1 [facility] Protein [Mass/volume] in Ser um or PlasmaOrdered By: Odin García on 03-04-2023 Protein [Mass/Vol] 7.4 g/dL 6.4-8.9 [facility] RBC Auto (Bld) [#/Vol]Ordere d By: Odin García on 03-04-2023 RBC (Bld) [#/Vol] 4.77 10*6/uL 3.60-5.00 [facility] Serum or plasma albumin/glob ulin mass ratioOrdered By: Odin García on 03-04-2023 Albumin/Globulin [Mass ratio] 1.6 {ratio} [facility] Serum or plasma anion gap de terminationOrdered By: Odin García on 03-04-2023 Anion gap [Moles/Vol] 11.6 mmol/L 6.0-15.0 [facility] Sodium [Moles/volume] in Ser um or PlasmaOrdered By: Odin García on 03-04-2023 Sodium [Moles/Vol] 136 mmol/L 136-145 [facility] Thyrotropin [Units/volume] i n Serum or PlasmaOrdered By: Odin García on 03-04-2023 TSH Qn 0.55 m[IU]/L 0.45-5.33 [facility] Urea nitrogen [Mass/volume] in Serum or PlasmaOrdered By: Odin García on 03-04-2023 Urea nitrogen [Mass/Vol] 17 mg/dL 7-25 [facility] WBC Auto (Bld) [#/Vol]Ordere d By: Odin García on 03-04-2023 WBC (Bld) [#/Vol] 6.9 10*3/uL 3.8-11.6 [facility] Alanine aminotransferase [En zymatic activity/volume] in Serum or PlasmaOrdered By: Na Bullimore on 02-07-2023 ALT [Catalytic activity/Vol] 33 U/L 7-52 [facility] Albumin [Mass/volume] in Ser um or Plasma by Bromocresol green (BCG) dye binding methoOrdered By: Na Bullimore on 02-07-2023 Albumin BCG dye [Mass/Vol] 4.9 g/dL 3.5-5.7 [facility] Alkaline phosphatase [Enzyma tic activity/volume] in Serum or PlasmaOrdered By: Na Bullimore on 02-07-2023 ALP [Catalytic activity/Vol] 84 U/L 34-104 [facility] Aspartate aminotransferase [ Enzymatic activity/volume] in Serum or PlasmaOrdered By: Na Rajputimore on 02-07-2023 AST [Catalytic activity/Vol] 26 U/L 13-39 [facility] Automated erythrocytes count in urine sediment (number/area)Ordered By: Na Rajputimore on 02-07-2023 RBC Auto (Urine sed) [#/Area] 1-2 [HPF] 0-4 [facility] Automated leukocytes count i n urine sediment (number/area)Ordered By: Na Rajputimore on 02-07-2023 WBC Auto (Urine sed) [#/Area] 0-1 [HPF] 0-4 [facility] Basophils Auto (Bld) [#/Vol] Ordered By: Na Spannore on 02-07-2023 Basophils (Bld) [#/Vol] 0.0 10*3/uL 0.0-0.2 [facility] Basophils/100 WBC Auto (Bld) Ordered By: Na Nieves on 02-07-2023 Basophils/100 WBC (Bld) 0.6 % . [facility] Bilirubin Test strip Ql (U)O rdered By: Na Nieves on 02-07-2023 Bilirubin Ql (U) Negative Negative [facility] Bilirubin.total [Mass/volume ] in Serum or PlasmaOrdered By: Na Nieves on 02-07-2023 Bilirubin [Mass/Vol] 0.6 mg/dL 0.3-1.0 [facility] Calcium [Mass/volume] in Ser um or PlasmaOrdered By: Na Rajputimalexandra on 02-07-2023 Calcium [Mass/Vol] 11.1 mg/dL 8.6-10.3 [facility] Carbon dioxide, total [Moles /volume] in Serum or PlasmaOrdered By: Na Rajputimore on 02-07-2023 CO2 [Moles/Vol] 25.8 mmol/L 21.0-31.0 [facility] Chloride [Moles/volume] in S gretchen or PlasmaOrdered By: Na Rajputimore on 02-07-2023 Chloride [Moles/Vol] 106 mmol/L 98-107 [facility] Color Auto (U)Ordered By: Sarah Nieves on 02-07-2023 Color (U) Yellow Yellow [facility] Creatinine [Mass/volume] in Serum or PlasmaOrdered By: Na Nieves on 02-07-2023 Creatinine [Mass/Vol] 0.69 mg/dL 0.60-1.20 [facility] Eosinophils Auto (Bld) [#/Vo l]Ordered By: Na Spannore on 02-07-2023 Eosinophils (Bld) [#/Vol] 0.0 10*3/uL 0.0-0.45 [facility] Eosinophils/100 WBC Auto (Bl d)Ordered By: Na Ezequiel on 02-07-2023 Eosinophils/100 WBC (Bld) 0.5 % . [facility] Erythrocyte distribution wid th Auto (RBC) [Ratio]Ordered By: Namegan Nieves on 02-07-2023 Erythrocyte distribution width (RBC) [Ratio] 12.6 % 11.9-15.3 [facility] Globulin Calc (S) [Mass/Vol] Ordered By: Namegan Nieves on 02-07-2023 Globulin (S) [Mass/Vol] 2.7 g/dL [facility] Glucose [Mass/volume] in Ser um or PlasmaOrdered By: Namegan Nieves on 02-07-2023 Glucose [Mass/Vol] 91 mg/dL 74-109 [facility] Comment on above: ADA recommended refe rence rangeRandom Glucose Reference Range is dependent on time and content of last meal. Glucose of more than 200 mg/dL in a nonstressed, ambulatory subject supports the diagnosis of Diabetes Mellitus. HCG ( test) IA.rapi d Ql (U)Ordered By: Na Nieves on 02-07-2023 HCG ( test) Ql (U) Negative [facility] Hematocrit Auto (Bld) [Volum e fraction]Ordered By: Na Nieves on 02-07-2023 Hematocrit (Bld) [Volume fraction] 45.4 % 34.0-46.4 [facility] Hemoglobin [Mass/volume] in BloodOrdered By: Namegan Nieves on 02-07-2023 Hemoglobin (Bld) [Mass/Vol] 15.2 g/dL 11.8-15.4 [facility] Ketones Auto test strip (U) [Mass/Vol]Ordered By: Na Nieves on 02-07-2023 Ketones (U) [Mass/Vol] Negative Negative [facility] Laboratory - Chemistry and C hemistry - challengeOrdered By: Na Nieves on 02-07-2023 GFR/1.73 sq M.predicted MDRD (S/P/Bld) [Vol rate/Area] mL/min/{1.73_m2} [facility] Laboratory - UrinalysisOrder ed By: Na Nieves on 02-07-2023 Hyaline casts LM Ql (Urine sed) 0-8 [LPF] 0-8 [facility] Leukocytes [#/volume] correc jeff for nucleated erythrocytes in Blood by Automated counOrdered By: Na Nieves on 02-07-2023 WBC corrected for nucl RBC Auto (Bld) [#/Vol] 3.7 10*3/uL 3.8-11.6 [facility] Lymphocytes Auto (Bld) [#/Vo l]Ordered By: Na Rajputimalexandra on 02-07-2023 Lymphocytes (Bld) [#/Vol] 1.0 10*3/uL 1.00-4.8 [facility] Lymphocytes/100 WBC Auto (Bl d)Ordered By: Na Rajputimore on 02-07-2023 Lymphocytes/100 WBC (Bld) 27.3 % . [facility] MCH Auto (RBC) [Entitic mass ]Ordered By: Na Rajputimore on 02-07-2023 MCH (RBC) [Entitic mass] 30.7 pg 24.7-34.3 [facility] MCHC Auto (RBC) [Mass/Vol]Or dered By: Na Bullimore on 02-07-2023 MCHC (RBC) [Mass/Vol] 33.4 g/dL 32.0-35.0 [facility] MCV Auto (RBC) [Entitic vol] Ordered By: Na Rajputimore on 02-07-2023 MCV (RBC) [Entitic vol] 92.0 fL 80-100 [facility] Monocyte distribution width [Entitic volume] in Blood by AutomatedOrdered By: Na Rajputimore on 02-07-2023 Monocyte distribution width Auto (Bld) [Entitic vol] 16.18 % 0.00-20.00 [facility] Monocytes Auto (Bld) [#/Vol] Ordered By: Na Bullimore on 02-07-2023 Monocytes (Bld) [#/Vol] 0.2 10*3/uL 0.0-0.8 [facility] Monocytes/100 WBC Auto (Bld) Ordered By: Na Bullimore on 02-07-2023 Monocytes/100 WBC (Bld) 6.7 % . [facility] Neutrophils Auto (Bld) [#/Vo l]Ordered By: Na Bullimore on 02-07-2023 Neutrophils (Bld) [#/Vol] 2.4 10*3/uL 1.8-7.7 [facility] Neutrophils/100 WBC Auto (Bl d)Ordered By: Na Rajputimore on 02-07-2023 Neutrophils/100 WBC (Bld) 64.9 % . [facility] Nitrite Test strip Ql (U)Ord ered By: Namegan Rajputimore on 02-07-2023 Nitrite Ql (U) Negative Negative [facility] No Panel InformationOrdered By: Na Rajputimore on 02-07-2023 Pharmacy Creatinine Clearance (Chem 127.95 [facility] Nucleated erythrocytes [Pres ence] in Blood by Automated countOrdered By: Na Rajputimore on 02-07-2023 Nucleated RBC Auto Ql (Bld) 0.1 /100{WBC} 0-0.5 [facility] Platelet mean volume Auto (B ld) [Entitic vol]Ordered By: Na Bullimore on 02-07-2023 Platelet mean volume (Bld) [Entitic vol] 9.9 fL 6.3-10.7 [facility] Platelets Auto (Bld) [#/Vol] Ordered By: Na Bullimore on 02-07-2023 Platelets (Bld) [#/Vol] 254 10*3/uL 150-450 [facility] Potassium [Moles/volume] in Serum or PlasmaOrdered By: Na Bullimore on 03-25-2023 Potassium [Moles/Vol] 4.3 mmol/L 3.5-5.1 [facility] Protein Auto test strip (U) [Mass/Vol]Ordered By: Na Nieves on 02-07-2023 Protein (U) [Mass/Vol] Negative Negative [facility] Protein [Mass/volume] in Ser um or PlasmaOrdered By: Na Bullimore on 02-07-2023 Protein [Mass/Vol] 7.6 g/dL 6.4-8.9 [facility] RBC Auto (Bld) [#/Vol]Ordere d By: Na Bullimore on 02-07-2023 RBC (Bld) [#/Vol] 4.94 10*6/uL 3.60-5.00 [facility] Serum or plasma albumin/glob ulin mass ratioOrdered By: Na Nieves on 02-07-2023 Albumin/Globulin [Mass ratio] 1.8 {ratio} [facility] Serum or plasma anion gap de terminationOrdered By: Na Nieves on 02-07-2023 Anion gap [Moles/Vol] 8.5 mmol/L 6.0-15.0 [facility] Sodium [Moles/volume] in Ser um or PlasmaOrdered By: Na Spannore on 02-07-2023 Sodium [Moles/Vol] 136 mmol/L 136-145 [facility] Specific gravity Auto test s trip (U) [Rel density]Ordered By: Na Nieves on 02-07-2023 Specific gravity (U) [Rel density] 1.017 1.001-1.030 [facility] Squamous epithelial cells de tection in urine sediment by light microscopyOrdered By: Na Nieves on 02-07-2023 Epithelial cells.squamous LM Ql (Urine sed) 1-2 [HPF] 0-2 [facility] Urea nitrogen [Mass/volume] in Serum or PlasmaOrdered By: Na Nieves on 02-07-2023 Urea nitrogen [Mass/Vol] 15 mg/dL 7-25 [facility] Urine bacteria detection by automated methodOrdered By: Na Nieves on 02-07-2023 Bacteria Auto Ql (U) None seen None Seen [facility] Urine clarity by refractomet ry automatedOrdered By: Na Nieves on 02-07-2023 Clarity Refractometry automated (U) Cloudy Clear [facility] Urine glucose measurement by automated test strip (mass/volume)Ordered By: Na Nieves on 02-07-2023 Glucose Auto test strip (U) [Mass/Vol] Normal mg/dL Normal [facility] Urine hemoglobin detection b y automated test stripOrdered By: Na Nieves on 02-07-2023 Hemoglobin Auto test strip Ql (U) Negative Negative [facility] Urine leukocyte esterase det ection by automated test stripOrdered By: Na Nieves on 02-07-2023 Leukocyte esterase Auto test strip Ql (U) Negative Negative [facility] Urobilinogen Auto test strip (U) [Mass/Vol]Ordered By: Na Nieves on 02-07-2023 Urobilinogen (U) [Mass/Vol] Normal mg/dL Normal [facility] WBC Auto (Bld) [#/Vol]Ordere d By: Na Nieves on 02-07-2023 WBC (Bld) [#/Vol] 3.7 10*3/uL 3.8-11.6 [facility] pH Auto test strip (U)Ordere d By: Na Nieves on 02-07-2023 pH (U) 7.0 [pH] 5.0-9.0 [facility] Streptococcus pyogenes antig en detectionOrdered By: Joo Andujar on 10-07-2022 S. pyogenes Ag Ql (Unsp spec) [facility] Urine culture routineOrdered By: Emma Moody on 06-22-2022 Bacteria identified Cx Nom (U) Escherichia coli [facility] XR Wrist Complete Left*on XR Wrist Complete Left* CLINICAL HISTORY : Pain and ecchymosis since trauma COMPARISON: None available TECHNIQUE: AP, lateral, oblique, and scaphoid views of the wrist. FINDINGS: No acute fracture. Radiocarpal and carpal alignment is within normal limits. Soft tissues are within normal limits. IMPRESSION: No acute osseous abnormality. Report reported and signed by Manohar Cortes on 04/01/2022 0935 Normal [facility] Ethnic Studies Professor Vital Signs Date Time Vital Sign Value Performing Clinician Facility 09-30-2024 20:41-0500 Body height 175.26 cm Sandee Carr APRN Work Phone: [facility] 09-30-2024 20:41-0500 Body temperature 98.3 [degF] Sandee Carr APRN Work Phone: [facility] 09-30-2024 20:41-0500 Body weight 80.25 kg Sandee Carr APRN Work Phone: [facility] 09-30-2024 20:41-0500 Diastolic blood pressure 98 mm[Hg] Sandee Carr APRN Work Phone: [facility] 09-30-2024 20:41-0500 Heart rate 95 /min Sandee Carr APRN Work Phone: [facility] 09-30-2024 20:41-0500 Respiratory rate 20 /min Sandee Carr APRN Work Phone: [facility] 09-30-2024 20:41-0500 SaO2% (BldA) [Mass fraction] 97 % Sandee Carr APRN Work Phone: [facility] 09-30-2024 20:41-0500 Systolic blood pressure 131 mm[Hg] Sandee Carr APRN Work Phone: [facility] 08-30-2024 08:57-0400 Body height 172.7 cm Gonzalo Sawyer DO Work Phone: [facility] 08-30-2024 08:57-0400 Body mass index (BMI) [Ratio] 27.37 kg/m2 Gonzalo Sawyer DO Work Phone: [facility] 08-30-2024 08:57-0400 Body weight 81.65 kg Gonzalo Sawyer DO Work Phone: [facility] 02-07-2023 11:17-0400 Diastolic blood pressure 68 mm[Hg] [facility] Work Phone: [facility] 02-07-2023 11:17-0400 Heart rate 76 /min [facility] Work Phone: [facility] 02-07-2023 11:17-0400 Respiratory rate 16 /min [facility] Work Phone: [facility] 02-07-2023 11:17-0400 SaO2% (BldA) [Mass fraction] 98 % [facility] Work Phone: [facility] 02-07-2023 11:17-0400 Systolic blood pressure 110 mm[Hg] [facility] Work Phone: [facility] 02-07-2023 09:16-0400 Body temperature 97.8 [degF] [facility] Work Phone: [facility] 02-07-2023 09:15-0400 Body height 172.72 cm [facility] Work Phone: [facility] 02-07-2023 09:15-0400 Body weight 83.91 kg [facility] Work Phone: [facility] 10-07-2022 20:16-0500 Body height 175.26 cm [facility] Work Phone: [facility] 10-07-2022 20:16-0500 Body temperature 97.8 [degF] [facility] Work Phone: [facility] 10-07-2022 20:16-0500 Body weight 78 kg [facility] Work Phone: [facility] 10-07-2022 20:16-0500 Diastolic blood pressure 88 mm[Hg] [facility] Work Phone: [facility] 10-07-2022 20:16-0500 Heart rate 96 /min [facility] Work Phone: [facility] 10-07-2022 20:16-0500 Respiratory rate 12 /min [facility] Work Phone: [facility] 10-07-2022 20:16-0500 SaO2% (BldA) [Mass fraction] 98 % [facility] Work Phone: [facility] 10-07-2022 20:16-050 Systolic blood pressure 140 mm[Hg] [facility] Work Phone: [facility] Encounters Encounter Date Encounter Type Care Provider Facility Start: 11-24-2024 End: 11-24-2024 ambulatory Gonzalo Sawyer Facility:[facility] Start: 10-03-2024 End: 10-03-2024 Emergency department patient visit Sandee Carr APRN Work Phone: [facility] Work Phone: Start: 09-30-2024 End: 09-30-2024 Emergency department patient visit Sandee Carr APRN Work Phone: [facility] Work Phone: Start: 08-30-2024 End: 08-30-2024 Bamboo flowsheet Gonzalo Sawyer DO Work Phone: [facility] Start: 08-30-2024 End: 08-30-2024 Bamboo flowsheet Gonzalo Sawyer DO Work Phone: [facility] [place] Start: 08-30-2024 End: 08-30-2024 Office outpatient new 45 minutes Gonzalo Sawyer DO Work Phone: [facility] [place] Comment on above: Primary hyperparathy roidism (CMS/HCC) (Primary Dx) Start: 08-30-2024 End: 08-30-2024 ambulatory GONZALO Sree SATNANA Not Available Start: 08-02-2024 End: 08-02-2024 Bamboo flowsheet Gonzalo Sawyer DO Work Phone: [facility] [place] Start: 08-02-2024 End: 08-02-2024 Bamboo flowsheet Gonzalo Sawyer DO Work Phone: [facility] [place] Start: 07-12-2024 End: 07-12-2024 Patient encounter procedure [facility] Work Phone: [facility] [place] Work Phone: Start: 07-12-2024 End: 07-12-2024 ambulatory [facility] Work Phone: [facility] Work Phone: Start: 06-30-2024 End: 06-30-2024 ambulatory Sandee Carr [facility] Work Phone: Start: 06-30-2024 End: 06-30-2024 Departed Referred STE[employer] DRIER OPERATOR Sandee Carr Work Phone: [facility] Start: 03-04-2023 End: 03-04-2023 ambulatory [facility] Work Phone: [facility] Work Phone: Start: 03-04-2023 End: 03-04-2023 Departed Referred [facility] Work Phone: [facility] Start: 02-07-2023 End: 02-07-2023 Emergency department patient visit [facility] Work Phone: [facility] Work Phone: Start: 10-07-2022 End: 10-07-2022 Emergency department patient visit [facility] Work Phone: [facility] Start: 06-19-2022 End: 06-19-2022 Departed Referred [facility] Work Phone: [facility] Start: 08-03-2017 End: 08-03-2017 Patient encounter procedure GELY [facility]IVEROE[facility] Facility:[facility] Procedures Date Procedure Procedure Detail Performing Clinician Start: 09-30-2024 Plain X-ray of right forearm Sandee Carr STEAM DRIER OPERATOR Work Phone: Start: 07-12-2024 Transvaginal echography [facility] Work Phone: Start: 07-12-2024 Pelvic echography Sandee Carr STEAM DRIER OPERATOR Work Phone: Start: 07-12-2024 US scan of thyroid Serv ices [facility] Work Phone: Start: 02-07-2023 CT of abdomen and pe lvis without contrast [facility] Work Phone: Start: 02-07-2023 CT of head without contrast [facility] Work Phone: Streptococcus pyogen es antigen assay [facility] Work Phone: Urine culture Services [facility] Work Phone: Plan of Treatment Date Care Activity Detail Author Start: 11-02-2024 End: 11-02-2024 Patient encounter procedure 11/02/2024 2:30 PM EST Office Visit [facility] [address] [place] [address] Melinda Whitney MD [address] [place] [address] [facility] Start: 09-20-2024 End: 09-20-2024 Patient encounter procedure 09/20/2024 9:00 AM EST Office Visit [facility] [address] [place] [address] Gonzalo Sawyer, DO [address] [place] [address] [facility] Start: 08-30-2024 End: 08-30-2024 Patient encounter procedure [facility] Comment on above: Arrived Start: 08-02-2024 End: 08-02-2024 Patient encounter procedure 08/02/2024 9:30 AM EDT Office Visit [facility] [address] [place] [id number] Gonzalo Sawyer, DO [address] [place] [address] Arrived [facility] [place] Comment on above: Arrived Start: 07-17-2024 Influenza vaccination Influenza Vacc ine (#1) [facility] Start: 07-12-2024 Pelvic echography US pelvic complete [facility] Start: 10-07-2022 Plain chest X-ray XR chest 1V portab le [facility] Start: 10-07-2022 XR Chest Single view [facility] Start: 2016 Screening for malignant neoplasm of cervix [facility] Start: 2007 Screening for malignant neoplasm of cervix Pap Smear [facility] Patient Education [facility] Work Phone: Patient referral [facility] Work Phone: Immunizations Immunization Date Immunization Notes Care Provider Fa cility 09-30-2024 tetanus toxoid, redu sofía diphtheria toxoid, and acellular pertussis vaccine, adsorbed Sandee Carr STEAM DRIER OPERATOR Work Phone: [facility] 04-22-2023 Seasonal, quadrivale nt, recombinant, injectable influenza vaccine, preservative free Gonzalo Sawyer DO Work Phone: [facility] 04-22-2023 influenza virus vaccine, unspecified formulation Gonzalo Sawyer DO Work Phone: [facility] 09-27-2019 influenza, injectabl e, quadrivalent, contains preservative Gonzalo Sawyer DO Work Phone: [facility] Payers Date Payer Category Payer Private Health Insurance [id number] 2024 Private Health Insurance [facility] [id number] 2024 Private Health Insurance [id number] 2024 Self-pay [id number] 2023 Medicaid [employer] [place] [employer] [id number] 2023-Present [address] [place] [address] [id number] 1986 Unknown [id number] 1986 Unknown [id number] 1986 Unknown [id number] 1959 Unknown [id number] Unknown [id number] Unknown [id number] Unknown [id number] Unknown [id number] Social History Date Type Detail Facility Start: 08-27-2021 End: 09-30-2024 Tobacco smoking status NHIS Never smoked tobacco (finding) [facility] Start: 1985 Sex Assigned At Female F [facility] Start: 10-07-2022 Tobacco smoking stat [facility] Current Light tobacco smoker [facility] Tobacco smoking stat [facility] Tobacco smoking consumption unknown [facility] Start: 1985 Sex assigned at Not on file [facility] Start: 08-30-2024 Gender identity Not [facility] file [facility] Start: 08-30-2024 Tobacco use and exposure Smokeless tobacco non-user [facility] Start: 08-30-2024 Alcoholic beverage intake Current drinker of alcohol (finding) [facility] Start: 08-30-2024 History of Social function [facility] Start: 08-30-2024 Alcohol Comment 2 times per week [facility] Start: 09-30-2024 End: 10-03-2024 Sex Female (finding) [facility] History of Present illness Narrative 08-30-2024 Gonzalo Sawyer, DO - 08/30/2024 9:00 AM EDT Note Date & Type Note Facility 08-30-2024 History of Presen t illness Narrative Subjective Patient ID: HPI Patient is a 39-year-old female referred by Dr. Whitney for primary hyperparathyroidism. Patient has been noted to have a elevated calcium for a while. Her most recent lab work shows the calcium 11.5, PTH of 133. She does have a history renal lithiasis. No other family members with a similar issue. Secondary causes have been ruled out. She has never had a DEXA scan. Review of Systems ROS The specialty specific review of systems is noncontributory except for that recorded in the intake questionnaire and /or described in the history of present illness. Objective ENT Physical Exam Physical Exam Constitutional: Appearance: Normal appearance. HENT: Head: Atraumatic. Ears: External ear shows no abnormality Bilateral ear canals are clear Tympanic membranes intact, no evidence of middle ear fluid or other pathology. Nose: External nose appears to be normal Nares patent. Septal deviation to the right No evidence of polyp, mass or pus bilaterally. Oral Cavity: No evidence of trismus Lips appear normal Dental good Tongue of normal size and configuration, floor of mouth mucosa clear. Buccal mucosa shows no evidence of ulceration, mass or other abnormality Hard palate soft palate mucosa intact with no evidence of mass, ulceration or other abnormality Uvula of normal size and configuration Oropharynx: Tonsils small Posterior pharyngeal wall normal Neck: No evidence of palpable abnormality Thyroid without evidence of thyromegaly or mass. No cervical lymphadenopathy present. Cardiovascular: Rate and Rhythm: Normal rate and regular rhythm. . Skin: General: Skin is warm and dry. Neurological: General: No focal deficit present. Mental Status: alert and oriented to person, place, and time. THYROID ULTRASOUND EXAMINATION Indication: Thyroid nodule After informed consent was obtained the patient was placed supine on the examining table. Patient was asked to extend the neck. Topical ultrasound jelly was used. The right lobe of the thyroid gland measures _ 5.1 cm in greatest dimension. There is a well-defined small hypoechoic nodule toward the inferior aspect of the lobe measuring about 3 mm in greatest dimension. There is nothing surrounding tissues suggestive of an enlarged parathyroid gland. The isthmus is unremarkable. The left lobe of the thyroid gland measures ___ 4.4 ____ cm greatest dimension. Posterior to the mid inferior aspect of the lobe is a well-defined hypoechoic lesion with a single feeding blood vessel measuring 2.8 in greatest dimension. No other suspicious lesions are noted. Nothing in the thyroid. There is no adenopathy in the central compartment. There is no appreciable adenopathy in either lateral neck. Assessment/Plan Meche was seen today for hypercalcemia. Diagnoses and all orders for this visit: Primary hyperparathyroidism (CMS/HCC) (Primary) Comments: The patient ultrasound and the suspicious left-sided lesion. I am going to obtain a parathyroid scan as well as a 4D CT scan and see her back following that. documented in this encounter [facility] Evaluation note Note Date & Type Note Facility Evaluation note No assessment information availa ble [facility] Work Phone: Evaluation note Note Date & Type Note Facility Evaluation note Diagnosis Primary hyperparathyroidism (CMS/HCC)- Primary Primary hyperparathyroidism documented in this encounter [facility] Discharge instructions Note Date & Type Note Facility Hospital Discharge instructions Additional Instructions Rest Increase oral fluids Take the ketorolac every 6 hours for pain May take the muscle relaxer cyclobenzaprine 3 times a day for pain may make you drowsy You can also take the promethazine every 6 hours for headache and nausea this can make you drowsy Follow-up with your family doctor for recheck Return to the ER for worsening pain visual changes fever vomiting or any other concerns [facility] Work Phone: Summary Purpose Family History No Family History Records FoundNo Family History Records FoundNo Family History Records FoundNo Family History Records FoundNo Family History Records Found Advance Directives No Advanced Directives Records Found Advance Directive Response Recorded Date/ Time Advance Directives No December 11:49am Advance Directive Response Recorded Date/ Time Advance Directives No December 10:49am Chief Complaint and Reason for Visit Chief Complaint R35.0 Chief Complaint N/V, headache Chief Complaint headache,stiff neck Chief Complaint headache,stiff neck Hyperthyroidism Serum calcium elevated Chief Complaint Fatigue, unspecified type Hyperthyroidism Hypovita Chief Complaint E55.9 R53.83 E05.90 E05.90 R10.2 Chief Complaint Admit Date E05.90 R10.2 July 12, 2024 10 :04am Dog bite September 30, 2024 8:35pm Chief Complaint Admit Date E05.90 R10.2 July 12, 2024 10 :04am Dog bite September 30, 2024 8:35pm rt arm pain October 03, 2024 3:47pm Additional Source Comments INFORMATION SOURCE (unrecogn ized section and content) DATE CREATED AUTHOR 08/24/2019 [facility] DATE CREATED AUTHOR AUTHOR'S ORGANIZ ATION 04/04/2022 [facility] dical Specialist DATE CREATED AUTHOR AUTHOR'S ORGANIZ ATION 09/01/2024 [facility] Specialists EPIC DATE CREATED AUTHOR AUTHOR'S ORGANIZ ATION 10/09/2024 [facility] DATE CREATED AUTHOR AUTHOR'S ORGANIZ ATION 12/03/2024 [facility] Care Teams (unrecognized sec tion and content) Team Status: Inactive Member Role Status Dates Services [facility] Primary Care Provider Active Emma Moody MD RES Referring Provider Active Hemal Moore DO Attending Provider Active Team Status: Active Member Role Status Dates Services [facility] Primary Care Provider Active Team Status: Inactive Member Role Status Dates Services [facility] Primary Care Provider Active Joo Andujar PA-C Emergency Provider Active Team Status: Inactive Member Role Status Dates Services [facility] Primary Care Provider Active BRIAN Sheldon Emergency Provider Active Team Status: Inactive Member Role Status Dates Services [facility] Primary Care Provider Active Odin García DO RES Attending Provider Active Team Status: Inactive Member Role Status Dates Sandee Carr APRN FORM WORKER-C Attending Provider Active Start: June 30, 2024 End: June 30, 2024 Team Status: Active Member Role Status Dates Sandee Carr APRN FORM WORKER-C Primary Care Provider Act geovanny Team Status: Inactive Member Role Status Dates Sandee Carr APRN FORM WORKER-C Attending Provider Active Start: June 30, 2024 End: June 30, 2024 [facility] Primary Care Provider Active Start: June 30, 2024 End: June 30, 2024 Team Status: Inactive Member Role Status Dates Sandee Carr APRN FORM WORKER-C Primary Care Provider, Attending Provider Active Start: July 12, 2024 End: July 12, 2024 Pit Shoveler Relationship Specialty Start Date End Date Unallocated, Michelle Bennett MD [address] [place] [address] PCP - General Family Medicine 07/15/24 Pit Shoveler Relationship Specialty Start Date End Date Unallocated, Michelle Bennett MD [address] [place] [address] PCP - General Family Medicine 07/15/24 Team Status: Inactive Member Role Status Dates Sandee Carr APRN FORM WORKER-C Primary Care Provider Act geovanny Start: September 30, 2024 End: September 30, 2024 Joo Andujar PA-C Emergency Provider Active Start: September 30, 2024 End: September 30, 2024 Team Status: Inactive Member Role Status Dates Sandee Carr APRN FORM WORKER-C Primary Care Provider Act geovanny Start: October 03, 2024 End: October 03, 2024 Aldo Rock DO Emergency Provider Active St art: October 03, 2024 End: October 03, 2024 Pit Shoveler Relationship Specialty Start Date End Date Unallocated, Michelle Bennett MD [address] [place] [address] PCP - General Family Medicine 07/15/24 Goals (unrecognized section and content) Goals may be documented in a n alternate sectionGoals may be documented in an alternate sectionGoals may be documented in an alternate sectionGoals may be documented in an alternate sectionGoals may be documented in an alternate sectionGoals may be documented in an alternate sectionGoals may be documented in an alternate sectionGoals may be documented in an alternate section Reason for Visit (unrecogniz ed section and content) Reason Comments Hypercalcemia New patient : elevat ed calcium and PTH FOR RECORDS PERTAINING TO PATIENTS WHO ARE OR HAVE BEEN ENROLLED IN A CHEMICAL DEPENDENCY/SUBSTANCEABUSE PROGRAM, SOME INFORMATION MAY BE OMITTED. This clinical summary was aggregated from multiple sources. Caution should be exercised in using it in the provision of clinical care. This summary normalizes information from multiple sources, and as a consequence, information in this document may materially change the coding, format and clinical context of patient data. In addition, data may be omitted in some cases. CLINICAL DECISIONS SHOULD BE BASED ON THE PRIMARY CLINICAL RECORDS. [facility]. provides no warranty or guarantee of the accuracy or completeness of information in this document.
[2024-12-21 20:58] VITALS: BP 142/94; PULSE 85; TEMP 36.4; O2SAT 99; BMI 25.8
--- NOTE | 2024-12-21 21:22 | ED.GENADUL1 ---
HPI HPI - General Adult General Chief complaint: Skin/Abscess/Foreign Body Stated complaint: LOCALIZED SWELLING (BREAST) Time Seen by Provider: 12/21/24 20:54 Source: patient Source information: feels like there is localized swelling to the L breast. Tristan Carr placed her on an ATB Mode of arrival: walk-in History of Present Illness HPI narrative: 39-year-old female presents for concerns about her left breast and some drainage. She states that she had this piercing placed about 8 years ago but she did not start having trouble with it until about 6 months ago. She has had some clear drainage and she has been on doxycycline for the last several days but it does not seem to be getting better. No pus has come out. She has not had a fever or vomiting. She is also concerned about her Abdomen: Where the incision line is, left lateral. She states that there is a firmness there. Related Data Home Medications ?Medication ?Instructions ?Recorded ?Confirmed doxycycline hyclate 100 mg tablet mg 12/21/24 Previous Rx's ?Medication ?Instructions ?Recorded cephalexin 500 mg capsule 500 mg PO QID 10 days #40 caps 12/21/24 Allergies Allergy/AdvReac Type Severity Reaction Status Date / Time No Known Drug Allergies Allergy Verified 10/04/24 22:35 Opioid HPI Opioid Management Most Recent Opioid Data: Last Pain Scale 5 10/06/24 11:42 10/06/24 Last ORT Total Score 1 10/05/24 01:38 10/05/24 Last ORT Risk Category Low Risk 10/05/24 01:38 10/05/24 Review of Systems ROS Narrative A ten point review of systems is negative except as noted above. [facility] Medical History (Updated 12/21/24 @ 22:32 by Pola Whittington MD) Hyperparathyroidism ?E21.3 - Hyperparathyroidism, unspecified (ICD-10) Social History Within the past year, how often did you have a drink containing alcohol: monthly or less Within the past year, how often did you have six or more drinks on one occasion: never Smoking status: Never smoker Non-prescribed substance use: denies use Known occupational exposures/hazards: No Highest level of school completed/degree received: high school graduate Do you want help with school or training: No Are you now , , , , never or living with a partner: living with partner In a typical week, how many times do you talk on the telephone with family, friends, or neighbors: 3 or more times per week How often do you get together with friends or relatives: twice per week How often do you attend congregational or zoroastrianism services: never Do you belong to any clubs or organizations such as congregational groups unions, fraternal or athletic groups, or school groups: no Total score: 2 Score interpretation: A score of greater than or equal to 2 indicates the lowest level of social isolation. Little interest or pleasure in doing things: not at all Feeling down, depressed, or hopeless: not at all Feel stressed/tense/nervous/anxious/difficulty sleeping: not at all Due to disability, difficulty making decisions: No Exam Narrative Exam Narrative: Nurses note and vital signs reviewed and patient is not hypoxic. General: The patient appears well and in no apparent distress. Patient is resting comfortably on cart. Skin: Warm, dry, no pallor noted. There is no rash noted. Left breast is examined. There is no abscess or erythema. There is some clear drainage coming from the opening where the piercing is. Head: Normocephalic, atraumatic Eye: Normal conjunctiva, no drainage Ears, Nose, Mouth, and Throat: oral mucosa is moist. Nares patent. Cardiovascular: Regular Rate and Rhythm Respiratory: Patient is in no distress, no accessory muscle use, lungs are clear to auscultation, no wheezing, rales or rhonchi Back: non-tender, no CVA tenderness bilaterally to percussion. GI: Soft and nontender. The left lateral aspect of her scar has some firmness in the subcutaneous tissue. Musculoskeletal: The patient has no evidence of calf tenderness, no pitting edema, symmetrical pulses noted bilaterally Neurological: A&O, normal speech Psychiatric: Cooperative Constitutional Vital Signs, click to edit/add: Last Vital Signs Temp 97.6 F 12/21/24 20:58 Pulse 85 12/21/24 20:58 Resp 16 12/21/24 20:58 BP 142/94 H 12/21/24 20:58 Pulse Ox 99 12/21/24 20:58 O2 Del Method Room Air 12/21/24 20:58 Course Vital Signs Vital signs: Vital Signs Temperature 97.6 F 12/21/24 20:58 Pulse Rate 85 12/21/24 20:58 Respiratory Rate 16 12/21/24 20:58 Blood Pressure 142/94 H 12/21/24 20:58 Pulse Oximetry 99 12/21/24 20:58 Oxygen Delivery Method Room Air 12/21/24 20:58 Temperature 97.6 F 12/21/24 20:58 Pulse Rate 85 12/21/24 20:58 Respiratory Rate 16 12/21/24 20:58 Blood Pressure 142/94 H 12/21/24 20:58 Pulse Oximetry 99 12/21/24 20:58 Oxygen Delivery Method Room Air 12/21/24 20:58 Medical Decision Making MDM Narrative Medical decision making narrative: Blood work is normal. We discussed removing the piercing. In the meantime we will switch her to Keflex. Treatment diagnosis and follow-up were discussed with the patient. There is no evidence of an abscess. Differential Diagnosis Differential Diagnosis: Cellulitis, abscess Lab Data Lab results reviewed: Yes I reviewed the patient's lab results Labs: Lab Results 12/21/24 Range/Units 22:00 WBC 5.3 (4.0-11.0) 10^3/uL RBC 5.00 (4.20-5.40) 10^6/uL Hgb 15.3 (12.0-16.0) g/dL Hct 46.0 (36.0-48.0) % MCV 92.0 (81.0-99.0) fL MCH 30.6 (26.7-34.0) pg MCHC 33.3 (29.9-35.2) g/dL RDW 12.1 (11.0-15.0) % Plt Count 217 (150-450) 10^3/uL MPV 11.6 (9.5-13.5) fL Neut % (Auto) 50.8 (43.0-75.0) % Lymph % (Auto) 38.5 (20.5-60.0) % [place] % (Auto) 6.8 (1.7-12.0) % Eos % (Auto) 1.1 (0.9-7.0) % Baso % (Auto) 1.1 (0.2-2.0) % Neut # (Auto) 2.7 (1.4-6.5) 10^3/uL Lymph # (Auto) 2.0 (1.2-3.8) 10^3/uL [place] # (Auto) 0.4 (0.3-0.8) 10^3/uL Eos # (Auto) 0.1 (0.0-0.7) 10^3/uL Baso # (Auto) 0.1 (0.0-0.1) 10^3/uL Abs Immat Gran (auto) 0.09 H (0.00-0.03) 10^3/uL Imm/Tot Granulo (auto) 1.7 H (0.0-0.5) % Sodium 139 (136-145) mmol/L Potassium 3.7 (3.5-5.1) mmol/L Chloride 102 (98-107) mmol/L Carbon Dioxide 27.5 (21.0-32.0) mmol/L Anion Gap 13.2 BUN 15.0 (7.0-18.0) mg/dL Creatinine 0.83 (0.55-1.02) mg/dL Est GFR ( Amer) >60 (>=60 mL/min/1.73m^2) Est GFR (Non-Af Amer) >60 (>=60 mL/min/1.73m^2) BUN/Creatinine Ratio 18.1 Glucose 96 (74-106) mg/dL Calcium 11.6 H (8.5-10.1) mg/dL Discharge Plan Discharge Chief Complaint: Skin/Abscess/Foreign Body Clinical Impression: Cellulitis Qualifiers: Site of cellulitis: extremity Site of cellulitis of extremity: upper extremity Laterality: right Qualified Code(s): L03.113 - Cellulitis of right upper limb Patient Disposition: Home, Self-Care Time of Disposition Decision: 22:32 Condition: Good Mode of Transportation: Private Vehicle Prescriptions / Home Meds: New cephalexin 500 mg capsule 500 mg PO QID 10 Days Qty: 40 0RF No Action doxycycline hyclate 100 mg tablet Print Language: Yoruba Instructions: Cellulitis (ED), Warm Compress or Soak (ED) Referrals: Sandee Carr NP [Primary Care Provider] - 1 week
--- NOTE | 2024-12-21 21:48 | PC.NURSE ---
teletypewriter operator wa able to access veins x 2 attempts, but was unable to get blood to flow. Another RN in to try.
[2024-12-21 22:08] LABS: Basophils Absolute Auto 0.1 10^3/uL (0.0-0.1); Basophils Percent Auto 1.1 % (0.2-2.0); Eosinophils Absolute Auto 0.1 10^3/uL (0.0-0.7); Eosinophils Percent Auto 1.1 % (0.9-7.0); Hemoglobin 15.3 g/dL (12.0-16.0); Immature Granulocytes Abs Auto 0.09 10^3/uL (0.00-0.03); Immature Granulocytes Pct Auto 1.7 % (0.0-0.5); Lymphocytes Percent Auto 38.5 % (20.5-60.0); Mean Corpuscular HGB Conc 33.3 g/dL (29.9-35.2); Mean Corpuscular Hemoglobin 30.6 pg (26.7-34.0); Mean Platelet Volume 11.6 fL (9.5-13.5); Monocytes Absolute Auto 0.4 10^3/uL (0.3-0.8); Monocytes Percent Auto 6.8 % (1.7-12.0); Neutrophils Absolute Auto 2.7 10^3/uL (1.4-6.5); Neutrophils Percent Auto 50.8 % (43.0-75.0); Platelet Count 217 10^3/uL (150-450); Red Cell Distribution Width 12.1 % (11.0-15.0); White Blood Count 5.3 10^3/uL (4.0-11.0)
[2024-12-21 22:17] LABS: Anion Gap 13.2; BUN Creatinine Ratio 18.1; Calcium 11.6 mg/dL (8.5-10.1); Carbon Dioxide 27.5 mmol/L (21.0-32.0); Chloride 102 mmol/L (98-107); Estimated GFR (African America >60 (>=60 mL/min/1.73m^2); Estimated GFR (Non-African Ame >60 (>=60 mL/min/1.73m^2); Glucose 96 mg/dL (74-106); Potassium 3.7 mmol/L (3.5-5.1); Sodium 139 mmol/L (136-145)
== END 2024-12-21 23:00 | disposition home or self-care (01) ==
PROVIDERS: Emergency Provider Emergency Medicine; PCP Nurse Practitioner Family
DX: N61.0 Mastitis without abscess (principal)
CPT/HCPCS: 36415; 80048; 85025; 87070; 87075; 99284